=== PATIENT | female | born 1935 | race Caucasian/White ===

== ENCOUNTER 2023-05-02 20:16 | Inpatient (IN) | payer MEDICARE, SELFPAY ==
[2023-05-02 17:50] VITALS: BMI 25.0
[2023-05-02 17:51] VITALS: BP 112/68
[2023-05-02 17:53] VITALS: BP 112/68
[2023-05-02 18:01] VITALS: BP 108/70
[2023-05-02 18:21] LABS: % Basophils 0.8 % (0-2); % Eosinophils 0.5 % (0-6); % Immature Granulocytes 0.4 % (0-0.5); % Lymphocytes 8.2 % (20.5-51.1); % Monocytes 8.9 % (1.7-9.3); % Neutrophils 81.2 % (42.2-75.2); Absolute Basophils 0.1 10^3/uL (0-0.2); Absolute Lymphocytes 0.6 10^3/uL (1.2-3.4); Absolute Monocytes 0.7 10^3/uL (0.1-0.6); Absolute Neutrophils 5.9 10^3/uL (1.4-6.5); Hematocrit 41.7 % (37.0-47.0); Hemoglobin 13.6 g/dL (12.0-16.0); Mean Corp Hgb Conc. 32.6 g/dL (33.0-37.0); Mean Corpuscular Hgb 29.6 pg (27.0-31.0); Mean Corpuscular Volume 90.7 fL (81.0-99.0); Mean Platelet Volume 12.3 fL (7.4-10.4); Nucleated Red Blood Cells % 0 %; Platelet Count 201 10^3/uL (130-400); Red Cell Dist. Width 17.3 % (11.5-14.5); White Blood Cell Count 7.3 10^3/uL (4.8-10.8)
[2023-05-02 18:32] LABS: INR 1.73; PT 20.4 Sec (11.4-14.6)
[2023-05-02 18:36] LABS: ALT (SGPT) 46 U/L (0-35); AST (SGOT) 85 U/L (14-36); Albumin 3.5 g/dl (3.5-5.0); Alkaline Phosphatase 105 U/L (38-126); Blood Urea Nitrogen 35 mg/dl (7-17); Calcium 8.9 mg/dl (8.4-10.2); Carbon Dioxide 22 mmol/L (22-30); Chloride 98 mmol/L (98-107); Estimated Creatinine Clearance 29 ml/min; Glucose 141 mg/dl (70-99); Potassium 5.1 mmol/L (3.5-5.1); Sodium 133 mmol/L (135-145); Total Bilirubin 1.5 mg/dl (0.2-1.3); Total Protein 6.4 g/dl (6.3-8.2); eGFR 44.08
[2023-05-02 18:47] LABS: Troponin I 0.022 ng/ml
[2023-05-02 19:00] VITALS: BP 124/76
--- NOTE | 2023-05-02 19:01 | ED.GENMED ---
History of Present Illness
<Danielito Love PA-C - Last Filed: 05/02/23 19:37>
General
Chief Complaint: Dizziness
Source: patient
Time Seen by Provider: 05/02/23 18:31
Travel History
Have you had any contact with someone who has COVID-19?: No
Do you have any symptoms of coronavirus? Fever > 100 degrees, chills, cough, shortness of breath, sore throat, loss of taste or smell, muscle aches, or headache?: No
History of Present Illness
History of Present Illness:
87-year-old female with past medical history of atrial fibrillation, hypertension, recent mesenteric artery thrombosis presenting to the emergency department for evaluation via EMS after she started to feel anxious, palpitations and panicky which
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 Patient states the symptoms usually are occurring in the evening time but started earlier today prompting her to call her post hole digger office who
advised she come to the ER for further evaluation. Patient notes she is getting treated for anxiety and panic disorder and states the medicine does seem to help her a little bit at nighttime but states the medicine will wear off and then she is
unable to sleep any longer. Patient reports that when EMS found her they gave her a little bit of oxygen which seemed to help her symptoms and she was told she had an elevated heart rate but is unsure as to how high her heart rate was. She denies
any fevers or recent illnesses or any other concerns.
Past History
<Danielito Love PA-C - Last Filed: 05/02/23 19:37>
Past History
ED Past Medical History: Arrthythmia (Paroxysmal atrial fibrillation/A. flutter), Asthma, CAD, HTN, Hypercholesterolemia, Hypothyroidism, Other (C. difficile colitis, admitted February 2010, celiac disease, osteoporosis) and Other (Mesenteric artery
thrombosis)
ED Past Surgical History: Appendectomy, Gynecological (Hysterectomy) and Orthopedic (Surgery)
Social History
Tobacco: Former smoker
Alcohol: Occasional
Drug: None
Personal:
Living: with family
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
Family History
Family History: CAD and Cancer
Review of Systems
<Danielito Love PA-C - Last Filed: 05/02/23 19:37>
Review of Systems
All Other Systems: ROS reviewed and negative except as documented in HPI and ROS
Phy Exam
<SUSANNA Escalante Last Filed: 05/02/23 19:37>
Physical Exam
Physical Exam:
GENERAL: Alert , in no apparent distress
EYE: pu clear conjunctiva
NECK: Supple
ENT: o/p clr, mmm.
CARDIAC: Irregularly irregular rate and rhythm, slow A-fib on the playground monitor with intermittent pauses
LUNGS: Clear breath sounds bilaterally, no acute respiratory distress, no wheezes/rales/rhonchi
ABDOMEN: Soft, without focal tenderness, no r/g, no cvat
NEUROLOGICAL: Alert and oriented
SKIN: Warm and dry, skin intact.
MUSCULOSKELETAL: No edema, well perfused.
PSYCH: Normal and appropriate interaction.
Scores
<Danielito Love PA-C - Last Filed: 05/02/23 19:37>
Heart Failure Risk
Heart Failure Risk Score: Not Applicable
Heart Score for Chest Pain Patients
STEMI patient?: Not applicable
Withdrawal Assessment of Alcohol
Withdrawal Assessment Completed?: Not applicable
Course
<SUSANNA Escalante Last Filed: 05/02/23 19:37>
Orders/Labs/Results
Orders:
Orders
05/02/23 17:51
Electrocardiogram (*1) Urgent
Reason for Study: Other
Other Reason for Exam: Possible Stroke
Cardiac Monitoring- Treatment ONCE
Vital Signs As Directed
Frequency: Other
Weight As Directed
Frequency: Once
Comment: ZERO STRETCHER SCALE FOR ACCURATE WEIGHT
05/02/23 17:52
EKG- Treatment ONCE
05/02/23 17:57
Complete Blood Count/With Diff Urgent
Comprehensive Metabolic Panel Urgent
Prothrombin Time Urgent
Troponin I Urgent
Abnormal Lab Results
05/02/23
17:57
MCHC 32.6 L g/dL
(33.0-37.0)
RDW 17.3 H %
(11.5-14.5)
MPV 12.3 H fL
(7.4-10.4)
Absolute Lymphs (auto) 0.6 L 10^3/uL
(1.2-3.4)
Absolute Monos (auto) 0.7 H 10^3/uL
(0.1-0.6)
Neutrophils % 81.2 H %
(42.2-75.2)
Lymphocytes % 8.2 L %
(20.5-51.1)
PT 20.4 H Sec
(11.4-14.6)
Sodium 133 L mmol/L
(135-145)
BUN 35 H mg/dl
(7-17)
Creatinine 1.2 H mg/dL
(0.6-1.0)
Glucose 141 H mg/dl
(70-99)
Total Bilirubin 1.5 H mg/dl
(0.2-1.3)
AST 85 H U/L
(14-36)
ALT 46 H U/L
(0-35)
05/02/23 17:57
05/02/23 17:57
Vital Signs
Initial and Last Documented VS:
Initial Vital Signs
BP
112/68
05/02/23 17:51
Last Documented Vital Signs
Temp Pulse Resp BP Pulse Ox
99.0 F 55 22 108/70 95
05/02/23 18:02 05/02/23 18:45 05/02/23 18:45 05/02/23 18:01 05/02/23 18:45
Tapping Machine Operator Automatic consulted with Physician
Tapping Machine Operator Automatic consulted with physician?: Yes
Name of Physician Consulted: Jaydon
<Deshawn Interiano MD - Last Filed: 05/02/23 19:13>
Orders/Labs/Results
Orders:
Orders
05/02/23 17:51
Electrocardiogram (*1) Urgent
Reason for Study: Other
Other Reason for Exam: Possible Stroke
Cardiac Monitoring- Treatment ONCE
Vital Signs As Directed
Frequency: Other
Weight As Directed
Frequency: Once
Comment: ZERO STRETCHER SCALE FOR ACCURATE WEIGHT
05/02/23 17:52
EKG- Treatment ONCE
05/02/23 17:57
Complete Blood Count/With Diff Urgent
Comprehensive Metabolic Panel Urgent
Prothrombin Time Urgent
Troponin I Urgent
Abnormal Lab Results
05/02/23
17:57
MCHC 32.6 L g/dL
(33.0-37.0)
RDW 17.3 H %
(11.5-14.5)
MPV 12.3 H fL
(7.4-10.4)
Absolute Lymphs (auto) 0.6 L 10^3/uL
(1.2-3.4)
Absolute Monos (auto) 0.7 H 10^3/uL
(0.1-0.6)
Neutrophils % 81.2 H %
(42.2-75.2)
Lymphocytes % 8.2 L %
(20.5-51.1)
PT 20.4 H Sec
(11.4-14.6)
Sodium 133 L mmol/L
(135-145)
BUN 35 H mg/dl
(7-17)
Creatinine 1.2 H mg/dL
(0.6-1.0)
Glucose 141 H mg/dl
(70-99)
Total Bilirubin 1.5 H mg/dl
(0.2-1.3)
AST 85 H U/L
(14-36)
ALT 46 H U/L
(0-35)
05/02/23 17:57
05/02/23 17:57
Vital Signs
Initial and Last Documented VS:
Initial Vital Signs
BP
112/68
05/02/23 17:51
Last Documented Vital Signs
Temp Pulse Resp BP Pulse Ox
99.0 F 55 22 108/70 95
05/02/23 18:02 05/02/23 18:45 05/02/23 18:45 05/02/23 18:01 05/02/23 18:45
<Danielito Love PA-C - Last Filed: 05/02/23 19:37>
MDM/Problems Addressed
Differential Diagnosis Includes:
Tachybradycardia syndrome, electrolyte disturbance, anemia, anxiety/panic disorder
MDM/Problems Addressed:
87-year-old female presenting the emergency department for a multitude of vague symptoms, I did have a difficult time initially ascertaining as to why the patient was ultimately brought to the emergency department. She notes that she has had these
waxing and waning symptoms of panic over the last 5 months or so without any specific etiology. Upon arrival patient was found to be significantly tachycardic around 148 bpm but during my exam patient's heart rate was persistently around 50 bpm but
did drop as low as 42 bpm. Patient maintains she is asymptomatic at this time. My biggest concern would be for tachybradycardia syndrome. Patient is on a beta-clay and Eliquis presently. Ultimately unclear etiology for patient's symptoms but
given age and prolonged duration of the symptoms combined with elevated heart rate initially on arrival, bradycardia with pauses on the ekg monitor tech I do think it would be best to admit patient for further evaluation and treatment.
Chronic conditions affecting care: Arrhythmia
Acute Exacerbation and/or Progression of Chronic Illness: Arrhythmia
<Danielito Love PA-C - Last Filed: 05/02/23 19:37>
*Pulse Oximetry
Patient hypoxic: no
*EKG
Interpreted by ED Provider?: Yes
Comparison EKG: changes noted
Heart Rate: 54
Rate: bradycardiac
Rhythm: a-fib
[place]: normal axis
Ischemia: no ischemia
*Setup Operator Interpretation
Rate: bradycardiac
Rhythm: a-fib
*Critical Care Note
Total Time (30-74mins, 75-104mins- exclusive of procedures): Not Applicable
Data Reviewed
Review of Other/Old Records Reveals: Labs, Records and Discharge Summary
Source: patient, records and family
<Danielito Love PA-C - Last Filed: 05/02/23 19:37>
Patient Management
Discussion with other providers: Hospitalist
Escalation/DeEscalation of care consider admission/obs:
Patient seen with Dr. Interiano. Patient history was noted to also have a near syncopal episode last week. Given the intermittent tachycardia combined with bradycardia and intermittent pauses seen on telemetry I do think it would be best for patient
to be admitted. Hospitalist is aware and accepts for continued evaluation and treatment.
ED Attending Note
<Danielito Love PA-C - Last Filed: 05/02/23 19:37>
-
Portions of this chart may have been created with voice recognition software.� Occasional wrong word or��sound alike� substitutions may have occurred due to the inherent limitations of voice recognition software.
<Deshawn Interiano MD - Last Filed: 05/02/23 19:13>
ED Attending Note
Patient seen and examined by attending physician: Yes
I performed the substantive portion of visit, reviewed & personally made and approve the management plan that is documented in note by myself or VINAYAK.: Yes
ED Attending Note:
Patient describing episodes of near syncope last week and possible early near syncope today. Was apparently noted to be tachycardic in the 140s on arrival however no proved by monitor. Has also had some episode pauses for a few seconds with her
atrial fibrillation. Clinically stable at this time.
Lungs are clear and equal. Heart irregular irregular. Warm and dry. Perfusing well. Grossly nonfocal.
Labs are stable. EKG atrial fibrillation rate controlled. Monitor noted to have a few episodes with 2-second pauses. Possible tachybradycardia syndrome with the atrial fibrillation. Warrants inpatient management
Discharge Plan
Departure
Patient Disposition: Admit
Date of Disposition: 05/02/23
Time of Disposition: 19:30
Presentation/result/management discussed w/ accepting MD/DO: Hospitalist
Discharge Problem:
Palpitations
Prescriptions:
No Action
pravastatin 20 MG tablet
20 mg PO QPM
ibandronate 150 mg Tablet
150 mg PO QMONTH
Eliquis 5 mg Tablet
5 mg PO BID Qty: 60 0RF
diltiazem HCl [Cardizem CD] 360 mg capsule,extended release 24hr
360 mg PO DAILY Qty: 30 0RF
multivitamin Tablet
1 tab PO DAILY@1200
metoprolol succinate 50 mg tablet extended release 24 hr
50 mg PO QPM
potassium chloride 20 mEq tablet,ER particles/crystals
20 meq PO DAILY@1200
ascorbic acid (vitamin C) [Vitamin C] 500 mg Tablet
500 mg PO DAILY@1200
levothyroxine 150 mcg tablet
150 mcg PO DAILY
bumetanide 1 mg tablet
0.5 mg PO BID@0800,1400
Saccharomyces boulardii [Florastor] 250 mg Capsule
250 mg PO BID
cholecalciferol (vitamin D3) [Vitamin D3] 25 mcg (1,000 unit) Tablet
25 mcg PO DAILY@1200
metoprolol succinate 50 mg tablet extended release 24 hr
75 mg PO DAILY
alprazolam [Xanax] 0.5 mg tablet
0.5 mg PO HS PRN (Reason: anxiety/sleep)
Patient Comments:
05/02/2023: last filled 03/29/23, 30 tabs for 30 days from [facility]
Interventions
Interventions:
*Risk Screen - Suicide Last Done: 05/02/23 17:50
*General Assessment Last Done: 05/02/23 17:50
*Neglect/Abuse Screening Last Done: 05/02/23 17:50
ED- Fall Risk Assessment Last Done: 05/02/23 17:54
*ED COVID-19 Vaccine History Last Done: 05/02/23 17:50
ED- Neurological Assessment Last Done: 05/02/23 17:50
ED- Cardiac Assessment Last Done: 05/02/23 17:54
ED Swallowing Screen Last Done: 05/02/23 19:13
[2023-05-02 20:00] VITALS: BP 121/77
--- NOTE | 2023-05-02 20:03 | HPS.HSE ---
Family Physician
-
Family Physician:
Chief Complaint
-
dizziness
History of Present Illness
87-year-old female past medical history of persistent atrial fibrillation, tachycardia induced cardiomyopathy, nonsustained ventricular tachycardia, moderate mitral regurgitation, patent mann ovale, hypertension, anxiety/panic disorder, celiac
disease, mesenteric ischemia status post SMA embolectomy, anemia, hypothyroidism, lung nodule, presenting with shortness of breath, lightheadedness occurring regularly sometimes with palpitations ongoing since her recent embolectomy for mesenteric
ischemia in November. She nearly passed out last Saturday but did not pass out.Symptoms usually occur in the evening today prompting her to call her reporting analyst office who recommended she come to the emergency room.
She denies any weight gain or weight loss.
Patient is being treated for anxiety and panic disorder and states that the medicine does help a little bit at nighttime but wears off and then she is unable to sleep. Patient was told by EMS that she had elevated heart rate. She denies any fever
or recent illness.
Medical History
Past Medical History
Past Medical History: Reports Other (persistent atrial fibrillation, tachycardia induced cardiomyopathy, nonsustained ventricular tachycardia, moderate mitral regurgitation, patent mann ovale, hypertension, anxiety/panic disorder, celiac disease,
mesenteric ischemia status post SMA embolectomy, anemia, hypothyroidism, lung nodule)
Past Surgical History: Reports None
Social History
Tobacco: Former Smoker
Alcohol: Occasional
Drug: None
Family History
Family History: Not pertinent
Allergies / Home Medications
Allergies reflects when Allergies were last updated in [facility].
Home Medications with original date entered in [facility]
Allergy/Medication List:
Allergies
Allergy/AdvReac Type Severity Reaction Status Date / Time
adhesive tape [Adhesive Tape] Allergy Redness,swe Verified 05/02/23 17:55
lling,rash
gluten [Gluten] Allergy ABDOMINAL Verified 05/02/23 17:55
PAIN,DIARRHEA,
WT LOSS,
ANEMIA
metronidazole [From Flagyl] Allergy cognitive Verified 05/02/23 17:55
impairment,
speech
effected
Sulfa (Sulfonamide Allergy Anaphylaxis Verified 05/02/23 17:55
Antibiotics)
almonds Allergy Stuffy, Uncoded 05/02/23 17:55
cough
CLEANING PRODUCTS Allergy Breathing Uncoded 05/02/23 17:55
difficulty,
coughing,
eye tearing
popcorn Allergy Stuffy, Uncoded 05/02/23 17:55
cough
Home Medications
pravastatin 20 mg tablet 20 mg PO QPM High Cholesterol 08/24/16
ibandronate 150 mg tablet 150 mg PO QMONTH OSTEOPOROSIS 01/15/23
apixaban 5 mg tablet (Eliquis) 5 mg PO BID #60 tabs 01/23/23
diltiazem HCl 360 mg capsule,extended release 24 hr (Cardizem CD) 360 mg PO DAILY #30 caps 01/23/23
Saccharomyces boulardii 250 mg capsule (Florastor) 250 mg PO BID 05/02/23
alprazolam 0.5 mg tablet (Xanax) 0.5 mg PO HS PRN anxiety/sleep 05/02/23
ascorbic acid (vitamin C) 500 mg tablet (Vitamin C) 500 mg PO DAILY@1200 05/02/23
bumetanide 1 mg tablet 0.5 mg PO BID@0800,1400 05/02/23
cholecalciferol (vitamin D3) 25 mcg (1,000 unit) tablet (Vitamin D3) 25 mcg PO DAILY@1200 05/02/23
levothyroxine 150 mcg tablet 150 mcg PO DAILY 05/02/23
metoprolol succinate 50 mg tablet,extended release 24 hr 50 mg PO QPM 05/02/23
metoprolol succinate 50 mg tablet,extended release 24 hr 75 mg PO DAILY 05/02/23
multivitamin 1 tab PO DAILY@1200 05/02/23
potassium chloride 20 mEq tablet,extended release(part/cryst) 20 meq PO DAILY@1200 05/02/23
Review of Systems
-
History Source: Patient
A 12 point ROS was completed and negative except as noted: Yes
Constitutional: Reports No Symptoms
EENT: Reports No Symptoms
Respiratory: Reports See HPI
Cardiac: Reports See HPI
Abdomen/GI: Reports No Symptoms
: Reports No Symptoms
Musculoskeletal: Reports No Symptoms
Skin: Reports No Symptoms
Neurological: Reports No Symptoms
Endocrine: Reports No Symptoms
Hematologic/Lymphatic: Reports No Symptoms
Psych: Reports No Symptoms
Physical Exam
Vital Signs
Vital Signs
Temp Pulse Resp BP Pulse Ox
99.0 F 64 23 124/76 93
05/02/23 18:02 05/02/23 19:30 05/02/23 19:30 05/02/23 19:00 05/02/23 19:00
Physical Exam
General: Well Developed, Well Nourished and No Apparent Distress
HEENT: NormoCephalic, Moist mucous membranes and Atraumatic
Respiratory: Clear
Cardiac: S1/S2 and Regular Rhythm; No Murmur or Rub
GI: Soft, Non Tender, Non Distended and Normal Bowel Sounds; No Organomegaly
Rectal: Deferred by Provider
Musculoskeletal: No Clubbing, No Cyanosis and No Edema
Skin: No Rash
Neuro: Nonfocal/grossly intact
Laboratory Results
-
05/02/23 17:57
05/02/23 17:57
Laboratory Results
PT 20.4 Sec (11.4-14.6) H 05/02/23 17:57
INR 1.73 05/02/23 17:57
Total Bilirubin 1.5 mg/dl (0.2-1.3) H 05/02/23 17:57
AST 85 U/L (14-36) H 05/02/23 17:57
ALT 46 U/L (0-35) H 05/02/23 17:57
Alkaline Phosphatase 105 U/L (38-126) 05/02/23 17:57
Troponin I 0.022 ng/ml 05/02/23 17:57
Data Reviewed
-
Lab Data: Labs Reviewed by me
Old Records: Reviewed
Impression/Plan
-
IMPRESSION:
PLAN:
# Tachybradycardia syndrome
# History of persistent atrial fibrillation
-Hold Eliquis for likely pacemaker
-Hold Cardizem, metoprolol
-N.p.o. past midnight
-Cardiology consulted
Tachycardia induced cardiomyopathy
-EF of 55 to 60%
-Continue Bumex
History of nonsustained ventricular tachycardia
Moderate mitral regurgitation
Patent mann ovale
Anxiety/panic disorder
-Continue Xanax
Essential hypertension
Celiac disease
History of mesenteric ischemia status post SMA embolectomy
Anemia
Hypothyroidism
-Continue levothyroxine
Lung nodule
Osteoporosis
Full code
DVT prophylaxis�SCDs
N.p.o. postmidnight
[2023-05-02 22:10] VITALS: BP 139/95
[2023-05-02 22:11] VITALS: BMI 22.2
[2023-05-02 22:29] VITALS: BMI 22.2
--- NOTE | 2023-05-02 23:00 | PTCARENOTE ---
Received pt from ED via stretcher; pt's height and weigh, vital signs obtained; pt transferred to hospital bed, new gown provided, tele leads changed; pt oriented to unit and room; pt was asked all admission questions, see work list; all pt's
questions were answered; pt assisted to bathroom and back to bed; pt assessed; pt AAOx3, denies pain; Afib on monitor, VSS; heart sounds audible, radial and DP pulses palpable, trace PUNEET; lungs CTA, spo2 98% on RA; + bs x4 quadrants, abdomen soft
non tender, pt NPO after midnight; pt voiding clear yellow urine; skin is CDI; x2 left PIV maintained; call ayala within reach; will continue to monitor.
[2023-05-03] VITALS (8 sets, daily range): BP systolic 103–136; BP diastolic 69–99; BMI 22.1
--- NOTE | 2023-05-03 02:30 | PTCARENOTE ---
Pt assessment unchanged; Afib on monitor, VSS; pt assisted to bathroom; barrier cream applied to pt's buttocks; pt assisted back to bed; am labs drawn and sent; call ayala within reach; will continue to monitor.
[2023-05-03 02:34] LABS: % Basophils 0.6 % (0-2); % Eosinophils 0.3 % (0-6); % Immature Granulocytes 0.3 % (0-0.5); % Lymphocytes 10.4 % (20.5-51.1); % Monocytes 11.6 % (1.7-9.3); % Neutrophils 76.8 % (42.2-75.2); Absolute Lymphocytes 0.7 10^3/uL (1.2-3.4); Absolute Monocytes 0.7 10^3/uL (0.1-0.6); Absolute Neutrophils 4.9 10^3/uL (1.4-6.5); Hematocrit 36.1 % (37.0-47.0); Hemoglobin 12.4 g/dL (12.0-16.0); Mean Corp Hgb Conc. 34.3 g/dL (33.0-37.0); Mean Corpuscular Hgb 29.8 pg (27.0-31.0); Mean Corpuscular Volume 86.8 fL (81.0-99.0); Mean Platelet Volume 12.3 fL (7.4-10.4); Nucleated Red Blood Cells % 0 %; Platelet Count 190 10^3/uL (130-400); Red Blood Cell Count 4.16 10^6/uL (4.20-5.40); Red Cell Dist. Width 17.2 % (11.5-14.5); White Blood Cell Count 6.4 10^3/uL (4.8-10.8)
[2023-05-03 03:33] LABS: ALT (SGPT) 71 U/L (0-35); AST (SGOT) 103 U/L (14-36); Albumin 3.3 g/dl (3.5-5.0); Alkaline Phosphatase 94 U/L (38-126); Blood Urea Nitrogen 36 mg/dl (7-17); Calcium 8.7 mg/dl (8.4-10.2); Carbon Dioxide 24 mmol/L (22-30); Chloride 99 mmol/L (98-107); Estimated Creatinine Clearance 42 ml/min; Glucose 112 mg/dl (70-99); Potassium 4.7 mmol/L (3.5-5.1); Sodium 134 mmol/L (135-145); Total Bilirubin 1.2 mg/dl (0.2-1.3); Total Protein 6.1 g/dl (6.3-8.2); eGFR > 60.00
[2023-05-03 03:54] LABS: Anisocytosis 1+; Normal RBC Morphology No; Ovalocytes 1+; Target Cells Occasional
[2023-05-03 03:55] LABS: Acanthocytes Occasional; Tear Drop Red Blood Cells Occasional
[2023-05-03] MEDS: SYNTHROID 150 MCG PO (06:00)
--- NOTE | 2023-05-03 07:46 | W.PN.CD ---
Today's Communication / Plan
-
Impression / Plan
-
Impression: 87F with palpitations. 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
PMH: persistent atrial fibrillation s/p PVI x2, moderate mitral regurgitation, and labile hypertension.
Plan:
Persistent atrial fibrillation since SMA thrombosis critical illness
-AF rate control was marginal on diltiazem 360 and metoprolol 50 BID (See Apr 12 Holter - Avg 91 with high of 127 but 44% over 100). She has intolerances at higher doses. I pitched her on�'(1) repeat ablation (2) more medication or (3) ablate and
pace strategy (my preference)' at our visit in March. She is unable to navigate this decision - she doesn't want more medication, but she also doesn't want a procedure due to concerns about anesthesia. I will continue to address this and still
lean strongly toward ablate and pace.
-PVI x2 in the past
-Oral Anticoagulation: Apixaban
-[id number]: 7
HFpEF
- diurese to 130 lbs.
- continue home Lasix
- check pBNP and CXR
HTN - stable
Moderate eccentric mitral regurgitation, updated TTE in December is stable
Patent foramen ovale
Confusion
Hypothyroidism, on levothyroxine
Dispo
- I think there is a significant component of anxiety and deconditioning to her symptoms.
- Continue tele and conversations about rate control
Subjective:Dictated
TTE Jan 15: normal LVEF, moderate MR (unchanged)
Physical Exam
Vital Signs/Labs
Vital Signs
Temp Pulse Resp BP Pulse Ox
36.3 C 94 18 136/69 98
05/03/23 07:14 05/03/23 07:14 05/03/23 07:14 05/03/23 02:10 05/03/23 07:14
05/02/23 05/03/23 05/04/23
06:59 06:59 06:59
Actual Weight 136 lb 10.986 oz
05/03/23 02:22
05/03/23 02:22
PT 20.4 Sec (11.4-14.6) H 05/02/23 17:57
INR 1.73 05/02/23 17:57
LAB Results
05/02/23
17:57
Troponin I 0.022
Data Reviewed
-
Date of Service: May 03, 2023
--- NOTE | 2023-05-03 08:37 | W.PN.HOSP.TC ---
Addendum entered and electronically signed by Maylin Gong MD 05/04/23 08:48:
Correction- '# Hypertension-continue carvedilol and beta-clay' should read as 'Discontinue Cardizem and BB'
Original Note:
Today's Communication/Plan
-
Echo
Ultrasound of the abdomen given elevated LFTs
Chest x-ray
Assessment / Plan
Assessment / Plan
87-year-old female presented with dizziness. Patient stated that she has not felt well since she had surgery for her blood clot in the abdomen in December 2022. She has had ablations in the past and states that A-fib came back after this.
On examination awake alert oriented x 3
Not in acute distress
Cardiovascular system S1-S2 irregular, systolic murmur at apex
Chest clear to auscultation
Abdomen-soft and nontender
No pedal edema
# Persistent atrial fibrillation since December 2022
History of ablation 2010 2013
Patient on Eliquis, Cardizem 360 mg daily, metoprolol 75 mg in the morning and 50 mg in the evening
She has tachybradycardia syndrome and may need ablation with pacemaker placement per discussion with cardiology
Patient has not made up her mind as she is uncomfortable with anesthesia.
Procedure may be planned for Saturday but discussed with cardiology
# Heart failure with preserved ejection fraction-chronic
Unclear if she has an acute component
Chest x-ray, proBNP ordered
She takes Bumex 0.5 mg p.o. twice daily at home-continue
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
# Moderate mitral regurgitation
# Mild hyponatremia-follow
# Acute kidney injury-resolving
# Elevated AST and ALT-check an ultrasound of the abdomen
Patient does have a history of cholelithiasis
# Hypothyroidism-continue Synthroid
# Hypertension-continue carvedilol and beta-clay
# Hyperlipidemia/atherosclerosis-continue pravastatin
# Osteoporosis-on ibandronate
# Anxiety-on Xanax as needed
# PFO
# Cluster headaches
# Diverticulosis/IBS/celiac disease
# Ex-smoker
# DVT prophylaxis-on Eliquis
# Full code
Discussed with nursing
Discussed with cardiology
Anticipated Discharge: > 48 hours
Subjective/Interval History
-
Date of Service: May 03, 2023
Objective Data
-
Labs:
Laboratory Results
05/03/23
02:22
WBC 6.4
Hgb 12.4
Hct 36.1 L
Plt Count 190
Sodium 134 L
Potassium 4.7
Chloride 99
Carbon Dioxide 24
BUN 36 H
Creatinine 0.9
Glucose 112 H
Calcium 8.7
Total Bilirubin 1.2
AST 103 H
ALT 71 H
Alkaline Phosphatase 94
Vital Signs:
Vital Signs
Temp Pulse Resp BP Pulse Ox
97.3 F 106 18 120/84 98
05/03/23 07:14 05/03/23 08:21 05/03/23 07:14 05/03/23 08:21 05/03/23 07:14
I&O
05/02/23 05/03/23 05/04/23
06:59 06:59 06:59
Intake Total 480 / 480
Balance 480 / 480
--- NOTE | 2023-05-03 08:56 | VNURNOTE ---
Patient is current with [facility] since 02/01 w/SN, will monitor progress and plan at discharge.
[2023-05-03] MEDS: BUMEX 1 MG IV ×2 (08:57→19:50)
[2023-05-03] MEDS: FLUSH (NSS) 2 FLUSH IV (08:57)
[2023-05-03] MEDS: FLORASTOR 250 MG PO ×2 (08:57→19:51)
[2023-05-03 09:26] LABS: NT-proBNP 2780 pg/ml
--- NOTE | 2023-05-03 09:56 | PTCARENOTE ---
Received patient this morning sitting oob in the chair. Assisted to the bathroom, rolling walker provided but instructed to call for assistance. Patient seen by cardiology and the hospitalist. Patient had been NPO for possible ppm, however now taken
for U/S of the abdomen and CXR/echo. Patient is very anxious, asking many questions about medications, plan of care etc.
--- NOTE | 2023-05-03 12:27 | CM ---
CM following for DC planning needs.
Met w/ patient at bedside to complete initial assessment.
Pt. informs that she resides alone at [facility]. Functionally, patient is indep. w/ use of a RW.
Pt. had recent surgery in 2022 and explains that she was DC'ed to SNF @ [facility] where she spent a week. She was DCed back to her apartment w/ [facility] and they are still providing RN care.
Pt. and dtr. are considering additional private duty care through private caregivers-this is an arrangement that they make privately.
DC plan at this time is for home w/ [facility]. Will initiate referral for [facility].
Will cont. to follow.
[2023-05-03] MEDS: VITAMIN D3 (cholecalciferol) 25 MCG PO (12:44)
[2023-05-03] MEDS: KCL 20 MEQ PO (12:44)
[2023-05-03] MEDS: THERAGRAN 1 TABLET PO (12:45)
[2023-05-03] MEDS: VITAMIN C 500 MG PO (12:45)
[2023-05-03] MEDS: TYLENOL 650 MG PO (15:00)
--- NOTE | 2023-05-03 15:05 | PTCARENOTE ---
Patient remains in AF, HR now 80-90's after receiving PO toprol. Telephoned PT re: PT evaluation as part of discharge planning. The patient's son went home to shower and is now back in the room with his dad. States his father sleeps upstairs at his
house but there is a bathroom on the main level.
--- NOTE | 2023-05-03 15:25 | PTCARENOTE ---
Patient complained of a headache and medicated with tylenol.
[2023-05-03] MEDS: PRAVACHOL 20 MG PO (17:40)
--- NOTE | 2023-05-03 18:30 | PTCARENOTE ---
Patient sitting oob in the chair visiting with her daughter. Remains in AF, no bradycardia or pauses noted on telemetry, rates 110's at rest but up to the 130's with activity. TT to Dr. Gong re: meds that have not been restarted and she requested
any rate issues be handled by cardiology. TT to Dr. Parra and events today communicated. Dr. Parra then spoke with Dr. Blackwood about plan of care and will order toprol for HS and resume the patient's eliquis.
[2023-05-03] MEDS: ELIQUIS 5 MG PO (19:51)
[2023-05-03] MEDS: TOPROL XL 25 MG PO (21:58)
[2023-05-04] VITALS (7 sets, daily range): BP systolic 118–140; BP diastolic 62–99; BMI 21.3
[2023-05-04 02:08] LABS: % Basophils 0.9 % (0-2); % Eosinophils 1.1 % (0-6); % Immature Granulocytes 0.2 % (0-0.5); % Lymphocytes 12.8 % (20.5-51.1); % Monocytes 12.6 % (1.7-9.3); % Neutrophils 72.4 % (42.2-75.2); Absolute Basophils 0.1 10^3/uL (0-0.2); Absolute Eosinophils 0.1 10^3/uL (0-0.7); Absolute Lymphocytes 0.7 10^3/uL (1.2-3.4); Absolute Monocytes 0.7 10^3/uL (0.1-0.6); Hematocrit 36.3 % (37.0-47.0); Hemoglobin 12.6 g/dL (12.0-16.0); Mean Corp Hgb Conc. 34.7 g/dL (33.0-37.0); Mean Corpuscular Hgb 29.8 pg (27.0-31.0); Mean Corpuscular Volume 85.8 fL (81.0-99.0); Nucleated Red Blood Cells % 0 %; Platelet Count 178 10^3/uL (130-400); Red Blood Cell Count 4.23 10^6/uL (4.20-5.40); Red Cell Dist. Width 17.2 % (11.5-14.5); White Blood Cell Count 5.5 10^3/uL (4.8-10.8)
[2023-05-04 02:25] LABS: ALT (SGPT) 64 U/L (0-35); AST (SGOT) 72 U/L (14-36); Albumin 3.5 g/dl (3.5-5.0); Alkaline Phosphatase 101 U/L (38-126); Blood Urea Nitrogen 30 mg/dl (7-17); Calcium 8.9 mg/dl (8.4-10.2); Carbon Dioxide 27 mmol/L (22-30); Chloride 105 mmol/L (98-107); Estimated Creatinine Clearance 47 ml/min; Glucose 96 mg/dl (70-99); Potassium 3.9 mmol/L (3.5-5.1); Sodium 137 mmol/L (135-145); Total Bilirubin 1.1 mg/dl (0.2-1.3); Total Protein 6.4 g/dl (6.3-8.2); eGFR > 60.00
--- NOTE | 2023-05-04 07:35 | PTCARENOTE ---
No episodes of bradycardia overnight, pt. remained in AF, rate 90's-150's (with activity) - even after HS Toprol given. Voiding frequently on BSC.
[2023-05-04] MEDS: ELIQUIS 5 MG PO ×2 (08:05→20:09)
[2023-05-04] MEDS: FLORASTOR 250 MG PO ×2 (08:05→20:09)
[2023-05-04] MEDS: SYNTHROID 150 MCG PO (08:05)
--- NOTE | 2023-05-04 08:17 | PTCARENOTE ---
Received pt for 7a-7p shift. Pt AAOx3, without complaints. Afib on lumber loader, hr 120-140's when moving, bp stable. 94% room air, some VALLE. Pt ambulatory to commode with rolling walker, 1 person assist. Medications administered as ordered.
Instructed pt to call for assistance prior to ambulation. Pt verbalized understanding, demonstrates use of call ayala system. Will continue to monitor.
--- NOTE | 2023-05-04 08:26 | W.PN.HOSP.TC ---
Today's Communication/Plan
-
Diuresis
Assessment / Plan
Assessment / Plan
87-year-old female presented with dizziness. Patient stated that she has not felt well since she had surgery for her blood clot in the abdomen in December 2022. She has had ablations in the past and states that A-fib came back after this.
On examination awake alert oriented x 3
Not in acute distress
Cardiovascular system S1-S2 irregular, systolic murmur at apex
Chest clear to auscultation
Abdomen-soft and nontender
Mild pedal edema
# Persistent atrial fibrillation since December 2022
History of ablation 2010 and 2013
Patient on Eliquis, Cardizem 360 mg daily, metoprolol 75 mg in the morning and 50 mg in the evening as OP
She has tachybradycardia syndrome and may need ablation with pacemaker placement per discussion with cardiology
Procedure planned for Saturday
Heart rate was running high yesterday low-dose beta-clay added may need to increase it to twice daily
# Heart failure with preserved ejection fraction-acute on chronic
Chest x-ray CHF, proBNP 2780
She takes Bumex 0.5 mg p.o. twice daily at home-changed to 1 mg IV BID
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
# Moderate mitral regurgitation
# Mild hyponatremia-resolved
# Acute kidney injury-resolving
# Elevated AST and ALT
Ultrasound of the abdomen-no abnormalities of the liver, bilateral pleural effusions, cholelithiasis without evidence of acute cholecystitis.
Patient does have a history of cholelithiasis
# Hypothyroidism-continue Synthroid
# Hypertension-continue metoprolol
# Hyperlipidemia/atherosclerosis-continue pravastatin
# Osteoporosis-on ibandronate
# Anxiety-on Xanax as needed
# PFO
# Cluster headaches
# Diverticulosis/IBS/celiac disease
# Ex-smoker
# DVT prophylaxis-on Eliquis
# Full code
Discussed with nursing
Discussed with cardiology
Anticipated Discharge: > 48 hours
Subjective/Interval History
-
Date of Service: May 04, 2023
Objective Data
-
Labs:
Laboratory Results
05/04/23
02:00
WBC 5.5
Hgb 12.6
Hct 36.3 L
Plt Count 178
Sodium 137
Potassium 3.9
Chloride 105
Carbon Dioxide 27
BUN 30 H
Creatinine 0.8
Glucose 96
Calcium 8.9
Total Bilirubin 1.1
AST 72 H
ALT 64 H
Alkaline Phosphatase 101
Vital Signs:
Vital Signs
Temp Pulse Resp BP Pulse Ox
98.2 F 139 20 140/85 94
05/04/23 07:42 05/04/23 08:00 05/04/23 07:42 05/04/23 07:42 05/04/23 07:42
I&O
05/03/23 05/04/23 05/05/23
06:59 06:59 06:59
Intake Total 480 / 480 1060 / 1060
Output Total 1000 / 1000
Balance 480 / 480 60 / 60
--- NOTE | 2023-05-04 09:04 | W.PN.CD ---
Today's Communication / Plan
-
increase Toprol XL to 25mg bid
continue IV bumex
tentative plan for PPM Saturday
Impression / Plan
-
Impression: 87F with palpitations. 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
PMH: persistent atrial fibrillation s/p PVI x2, chronic HFPEF, moderate mitral regurgitation, and labile hypertension.
Plan:
Persistent atrial fibrillation since SMA thrombosis critical illness
-AF rate control was marginal on diltiazem 360 and metoprolol 50 BID (See Apr 12 Holter - Avg 91 with high of 127 but 44% over 100). She has intolerances at higher doses. Dr Blackwood discussed (1) repeat ablation (2) more medication or (3) ablate
and pace strategy (SR preference and recommendation) at visit in March, and again on 05/03. She is struggles to make a decision.
-we again discussed proceeding to PPM on Saturday: she is thinking about it
-rate: increase Toprol XL to 25mg bid
-PVI x2 in the past
-Oral Anticoagulation: Apixaban
-[id number]: 7
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
-echo 05/03: EF 40%, down from 55-60% in 12/2022, with MR now moderate/severe (from moderate)
-severe, requiring close monitoring of labs and tele
-suspect in setting of A fib with RVR
-Toprol being titrated as above
-bumex 1mg IV bid
-others meds limited by intolerances
HTN - stable
Moderate/severe MR, mild/mod TR, pulm HTN
-diurese
Patent foramen ovale
Confusion
Hypothyroidism, on levothyroxine
Dispo
- I think there is a significant component of anxiety and deconditioning to her symptoms.
- Continue tele and conversations about rate control
Subjective:
She reports more palps today.
Physical Exam
Vital Signs/Labs
Vital Signs
Temp Pulse Resp BP Pulse Ox
98.2 F 139 20 140/85 94
05/04/23 07:42 05/04/23 08:00 05/04/23 07:42 05/04/23 07:42 05/04/23 07:42
05/03/23 05/04/23 05/05/23
06:59 06:59 06:59
Actual Weight 62 kg 59.7 kg
05/04/23 02:00
05/04/23 02:00
PT 20.4 Sec (11.4-14.6) H 05/02/23 17:57
INR 1.73 05/02/23 17:57
Magnesium 2.0 mg/dl (1.6-2.3) 05/04/23 02:00
05/03/23
02:22
Efq-O-Koqesvckuad Pept 2780
LAB Results
05/02/23
17:57
Troponin I 0.022
Physical Exam
Constitutional: No acute distress and Comfortable
EENT: Moist mucous membranes
Cardiovascular: Rhythm/rate is irregular, Pedal edema present, JVD present and Systolic murmur present
Respiratory: Respiratory effort normal and Lungs clear to auscul.
GI: Soft, Distention absent and Flat
Neuro/Psych: AO x 3
Data Reviewed
-
Date of Service: May 04, 2023
EKG: Other (Tele: A fib 110s-120s)
Echo: Tracing Personally Visualized and interpreted (see note)
Labs: Labs Reviewed by me
Old Records: Reviewed
[2023-05-04] MEDS: TOPROL XL 25 MG PO ×2 (09:20→20:09)
[2023-05-04] MEDS: BUMEX 1 MG IV ×2 (09:21→15:02)
[2023-05-04] MEDS: VITAMIN D3 (cholecalciferol) 25 MCG PO (12:02)
[2023-05-04] MEDS: KCL 20 MEQ PO (12:02)
[2023-05-04] MEDS: VITAMIN C 500 MG PO (12:02)
[2023-05-04] MEDS: THERAGRAN 1 TABLET PO (12:02)
[2023-05-04] MEDS: XANAX 0.25 MG PO (15:14)
[2023-05-04] MEDS: PRAVACHOL 20 MG PO (17:15)
--- NOTE | 2023-05-04 18:48 | PTCARENOTE ---
Patient AAOx3, oob in chair, without complaints. VSS, Afib on cardiac monitor technician. Family at bedside. Xanax given at 1515 for anxiety, pt feeling better. +bm, voiding on commode without issues. Pt denies pain at this time. Will continue to monitor.
[2023-05-04] MEDS: XANAX 0.5 MG PO (22:08)
--- NOTE | 2023-05-05 02:14 | PTCARENOTE ---
HR 120's-150's when awake, A-fib. Pt. very anxious, barely slept night before. Xanax given, pt. much calmer post, HR down to low 100's-110's with sleep (Toprol also given as ordered).
[2023-05-05 04:09] VITALS: BP 114/89
[2023-05-05 04:16] VITALS: BMI 21.0
[2023-05-05 04:48] LABS: Hematocrit 42.1 % (37.0-47.0); Hemoglobin 13.9 g/dL (12.0-16.0); Mean Corpuscular Hgb 29.9 pg (27.0-31.0); Mean Corpuscular Volume 90.5 fL (81.0-99.0); Platelet Count 181 10^3/uL (130-400); Red Blood Cell Count 4.65 10^6/uL (4.20-5.40); Red Cell Dist. Width 17.5 % (11.5-14.5); White Blood Cell Count 5.1 10^3/uL (4.8-10.8)
[2023-05-05 05:07] LABS: Blood Urea Nitrogen 25 mg/dl (7-17); Calcium 9.2 mg/dl (8.4-10.2); Carbon Dioxide 31 mmol/L (22-30); Chloride 102 mmol/L (98-107); Estimated Creatinine Clearance 47 ml/min; Glucose 104 mg/dl (70-99); Potassium 3.8 mmol/L (3.5-5.1); Sodium 139 mmol/L (135-145); eGFR > 60.00
--- NOTE | 2023-05-05 08:28 | W.PN.CD ---
Today's Communication / Plan
-
we again discussed proceeding to PPM on Saturday: she is thinking about it, and would like to consult with EP in AM
rate: increase Toprol XL to 50mg bid
cont IV bumex
NPO for possible PPM in AM, and hold jose montoya
Impression / Plan
-
Impression: 87F with palpitations. 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
PMH: persistent atrial fibrillation s/p PVI x2, chronic HFPEF, moderate mitral regurgitation, and labile hypertension.
Plan:
Persistent atrial fibrillation since SMA thrombosis critical illness
-AF rate control was marginal on diltiazem 360 and metoprolol 50 BID (See Apr 12 Holter - Avg 91 with high of 127 but 44% over 100). She has intolerances at higher doses. Dr Blackwood discussed (1) repeat ablation (2) more medication or (3) ablate
and pace strategy (SR preference and recommendation) at visit in March, and again on 05/03. She is struggles to make a decision.
-we again discussed proceeding to PPM on Saturday: she is thinking about it, and would like to consult with EP in AM
-rate: increase Toprol XL to 50mg bid
-PVI x2 in the past
-Oral Anticoagulation: Apixaban
-[id number]: 7
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
-echo 05/03: EF 40%, down from 55-60% in 12/2022, with MR now moderate/severe (from moderate)
-severe, requiring close monitoring of labs and tele
-suspect in setting of A fib with RVR
-Toprol being titrated as above
-bumex 1mg IV bid
-others meds limited by intolerances
HTN - stable
Moderate/severe MR, mild/mod TR, pulm HTN
-diurese
Patent foramen ovale
Confusion
Hypothyroidism, on levothyroxine
Dispo
- I think there is a significant component of anxiety and deconditioning to her symptoms.
- Continue tele and conversations about rate control
Subjective:
Continues with palps.
Physical Exam
Vital Signs/Labs
Vital Signs
Temp Pulse Resp BP Pulse Ox
97.4 F 131 20 114/89 96
05/05/23 04:15 05/05/23 07:00 05/05/23 04:15 05/05/23 04:09 05/05/23 04:15
05/04/23 05/05/23 05/06/23
06:59 06:59 06:59
Actual Weight 59.7 kg 59.1 kg
05/05/23 04:24
05/05/23 04:24
PT 20.4 Sec (11.4-14.6) H 05/02/23 17:57
INR 1.73 05/02/23 17:57
Magnesium 2.0 mg/dl (1.6-2.3) 05/04/23 02:00
05/03/23
02:22
Vqt-F-Ykymxswddld Pept 2780
LAB Results
05/02/23
17:57
Troponin I 0.022
Physical Exam
Constitutional: No acute distress and Comfortable
EENT: Moist mucous membranes
Cardiovascular: Rhythm/rate is irregular, Pedal edema present, JVD present and Systolic murmur present
Respiratory: Respiratory effort normal and Lungs clear to auscul.
GI: Soft and Distention absent
Neuro/Psych: AO x 3
Data Reviewed
-
Date of Service: May 05, 2023
EKG: Other (Tele: A fib 120s)
Labs: Labs Reviewed by me
[2023-05-05] MEDS: FLORASTOR 250 MG PO ×2 (09:10→20:13)
[2023-05-05] MEDS: SYNTHROID 150 MCG PO (09:10)
[2023-05-05] MEDS: ELIQUIS 5 MG PO (09:10)
[2023-05-05] MEDS: BUMEX 1 MG IV ×2 (09:10→15:44)
[2023-05-05] MEDS: TOPROL XL 50 MG PO ×2 (09:11→20:15)
[2023-05-05 09:13] VITALS: BP 130/97
[2023-05-05] MEDS: TOPROL XL PO (09:18)
--- NOTE | 2023-05-05 10:42 | W.PN.HOSP.TC ---
Today's Communication/Plan
-
BB
EP to discuss plans
Bumex
Assessment / Plan
Assessment / Plan
87-year-old female presented with dizziness. Patient stated that she has not felt well since she had surgery for her blood clot in the abdomen in December 2022. She has had ablations in the past and states that A-fib came back after this.
On examination awake alert oriented x 3
Cardiovascular system S1-S2 irregular, systolic murmur at apex
Chest clear to auscultation
Abdomen-soft and nontender
Mild pedal edema
# Persistent atrial fibrillation since December 2022
History of ablation 2010 and 2013
Patient on Eliquis, Cardizem 360 mg daily, metoprolol 75 mg in the morning and 50 mg in the evening as OP
She has tachybradycardia syndrome and may need ablation with pacemaker placement per discussion with cardiology
Procedure planned for Saturday if patient AGREABLE
She still has not made up her mind
Heart rate was running high yesterday low-dose beta-clay added is being increased today to 50 twice daily.
# Heart failure with preserved ejection fraction-acute on chronic
Chest x-ray CHF, proBNP 2780
She takes Bumex 0.5 mg p.o. twice daily at home-changed to 1 mg IV BID
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
# Moderate mitral regurgitation
# Mild hyponatremia-resolved
# Acute kidney injury-resolving
# Elevated AST and ALT
Possible Hepatic Congestion from CHF
Ultrasound of the abdomen-no abnormalities of the liver, bilateral pleural effusions, cholelithiasis without evidence of acute cholecystitis.
Patient does have a history of cholelithiasis
# Hypothyroidism-continue Synthroid
# Hypertension-continue metoprolol
# Hyperlipidemia/atherosclerosis-continue pravastatin
# Osteoporosis-on ibandronate
# Anxiety-on Xanax as needed
# PFO
# Cluster headaches
# Diverticulosis/IBS/celiac disease
# Ex-smoker
# DVT prophylaxis-on Eliquis
# Full code
Discussed with nursing
Discussed with cardiology
Spoke to patient's daughter in detail and updated about patient's options and the plan for now. Also aware about cholelithiasis and LFTs
All questions answered
Anticipated Discharge: 24 - 48 hours
Subjective/Interval History
-
Date of Service: May 05, 2023
Objective Data
-
Labs:
Laboratory Results
05/05/23
04:24
WBC 5.1
Hgb 13.9
Hct 42.1
Plt Count 181
Sodium 139
Potassium 3.8
Chloride 102
Carbon Dioxide 31 H
BUN 25 H
Creatinine 0.8
Glucose 104 H
Calcium 9.2
Vital Signs:
Vital Signs
Temp Pulse Resp BP Pulse Ox
98.2 F 118 18 130/97 100
05/05/23 07:35 05/05/23 09:13 05/05/23 07:35 05/05/23 09:13 05/05/23 07:37
I&O
05/04/23 05/05/23 05/06/23
06:59 06:59 06:59
Intake Total 1060 / 1060 240 / 240 480 / 480
Output Total 1000 / 1000 1700 / 1700
Balance 60 / 60 -1460 / -1460 480 / 480
[2023-05-05 11:27] VITALS: BP 113/79
[2023-05-05] MEDS: THERAGRAN 1 TABLET PO (14:02)
[2023-05-05] MEDS: VITAMIN D3 (cholecalciferol) 25 MCG PO (14:02)
[2023-05-05] MEDS: VITAMIN C 500 MG PO (14:03)
[2023-05-05] MEDS: KCL 20 MEQ PO (14:04)
[2023-05-05 15:29] VITALS: BP 114/81
[2023-05-05] MEDS: PRAVACHOL 20 MG PO (15:44)
--- NOTE | 2023-05-05 18:20 | PTCARENOTE ---
pt continues to be Afib on the monitor, HR in the 120s, VSS. pt educated on plan of care for the evening and pt verbalized understanding. call ayala within reach.
[2023-05-05 20:05] VITALS: BP 120/93
[2023-05-05 22:06] VITALS: BP 115/79
[2023-05-05] MEDS: XANAX 0.5 MG PO (22:12)
--- NOTE | 2023-05-06 01:36 | PTCARENOTE ---
Pt. remains A-fib on the monitor, HR down to the low 100's with rest post Toprol and Xanax. Pt. eager to speak with EP physician in AM, plan of care discussed. Pt. aware she is NPO for possible PPM in AM.
[2023-05-06 02:33] VITALS: BMI 20.7
[2023-05-06 04:11] VITALS: BP 109/77
[2023-05-06] MEDS: SYNTHROID 150 MCG PO (04:26)
[2023-05-06 04:45] LABS: Hematocrit 38.5 % (37.0-47.0); Hemoglobin 12.6 g/dL (12.0-16.0); Mean Corp Hgb Conc. 32.7 g/dL (33.0-37.0); Mean Corpuscular Hgb 29.8 pg (27.0-31.0); Mean Platelet Volume 12.4 fL (7.4-10.4); Platelet Count 182 10^3/uL (130-400); Red Blood Cell Count 4.23 10^6/uL (4.20-5.40); Red Cell Dist. Width 17.6 % (11.5-14.5); White Blood Cell Count 5.4 10^3/uL (4.8-10.8)
[2023-05-06 05:33] LABS: ALT (SGPT) 43 U/L (0-35); AST (SGOT) 53 U/L (14-36); Albumin 3.1 g/dl (3.5-5.0); Alkaline Phosphatase 73 U/L (38-126); Blood Urea Nitrogen 29 mg/dl (7-17); Carbon Dioxide 32 mmol/L (22-30); Chloride 99 mmol/L (98-107); Estimated Creatinine Clearance 53 ml/min; Glucose 94 mg/dl (70-99); Potassium 3.8 mmol/L (3.5-5.1); Sodium 138 mmol/L (135-145); Total Bilirubin 1.1 mg/dl (0.2-1.3); Total Protein 5.9 g/dl (6.3-8.2); eGFR > 60.00
[2023-05-06 07:45] VITALS: BP 142/98
[2023-05-06] MEDS: FLORASTOR 250 MG PO ×2 (08:23→21:13)
[2023-05-06] MEDS: TOPROL XL 50 MG PO ×2 (08:26→21:13)
[2023-05-06] MEDS: BUMEX 1 MG IV (08:28)
--- NOTE | 2023-05-06 10:54 | W.PN.HOSP.TC ---
Today's Communication/Plan
-
IV Bumex
Pacemaker
Assessment / Plan
Assessment / Plan
87-year-old female presented with dizziness. Patient stated that she has not felt well since she had surgery for her blood clot in the abdomen in December 2022. She has had ablations in the past and states that A-fib came back after this.
On examination awake alert oriented x 3
Cardiovascular system S1-S2 irregular, systolic murmur at apex
Chest clear to auscultation
Abdomen-soft and nontender
Mild pedal edema
# Persistent atrial fibrillation since December 2022
History of ablation 2010 and 2013
Patient on Eliquis, Cardizem 360 mg daily, metoprolol 75 mg in the morning and 50 mg in the evening as OP
She has tachybradycardia syndrome and may need ablation with pacemaker placement per discussion with cardiology
Procedure planned for today
Continue metoprolol 50 twice daily.
Patient is agreeable for procedure today
# Heart failure with preserved ejection fraction-acute on chronic
Chest x-ray CHF, proBNP 2780
She takes Bumex 0.5 mg p.o. twice daily at home-changed to 1 mg IV BID
Weight slowly coming down
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
# Moderate mitral regurgitation
# Mild hyponatremia-resolved
# Acute kidney injury-resolving
# Elevated AST and ALT
Possible Hepatic Congestion from CHF- trending down
Ultrasound of the abdomen-no abnormalities of the liver, bilateral pleural effusions, cholelithiasis without evidence of acute cholecystitis.
Patient does have a history of cholelithiasis
# Hypothyroidism-continue Synthroid
# Hypertension-continue metoprolol
# Hyperlipidemia/atherosclerosis-continue pravastatin
# Osteoporosis-on ibandronate
# Anxiety-on Xanax as needed
# PFO
# Cluster headaches
# Diverticulosis/IBS/celiac disease
# Ex-smoker
# DVT prophylaxis-on Eliquis
# Full code
Discussed with nursing
Discussed with cardiology
Patient is an extremely anxious person who worries about almost everything. She states that she wants sleep after the pacemaker and will research for any support groups. We discussed that her heart rate is being monitored on telemetry. Emotional
support provided.
Anticipated Discharge: Within 24 hours
Subjective/Interval History
-
Date of Service: May 06, 2023
Objective Data
-
Labs:
Laboratory Results
05/06/23
04:21
WBC 5.4
Hgb 12.6
Hct 38.5
Plt Count 182
Sodium 138
Potassium 3.8
Chloride 99
Carbon Dioxide 32 H
BUN 29 H
Creatinine 0.7
Glucose 94
Calcium 9.0
Total Bilirubin 1.1
AST 53 H
ALT 43 H
Alkaline Phosphatase 73
Vital Signs:
Vital Signs
Temp Pulse Resp BP Pulse Ox
97.3 F 108 20 109/77 93
05/06/23 07:48 05/06/23 04:11 05/06/23 07:48 05/06/23 04:11 05/06/23 07:48
I&O
05/05/23 05/06/23 05/07/23
06:59 06:59 06:59
Intake Total 240 / 240 480 / 480
Output Total 1700 / 1700 1050 / 1050
Balance -1460 / -1460 -570 / -570
[2023-05-06 11:18] VITALS: BP 116/73
--- NOTE | 2023-05-06 11:24 | W.PN.CD ---
Today's Communication / Plan
-
- PPM today (PROCESSING TECHNICIAN-P)
- uptitrate rate control post implant.
Impression / Plan
-
Impression: 87F with palpitations. 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
PMH: persistent atrial fibrillation s/p PVI x2, chronic HFPEF, moderate mitral regurgitation, and labile hypertension.
Plan:
Persistent atrial fibrillation since SMA thrombosis critical illness
-AF rate control was marginal on diltiazem 360 and metoprolol 50 BID (See Apr 12 Holter - Avg 91 with high of 127 but 44% over 100). She has intolerances at higher doses.
-As previously discussed by Dr Blackwood, we went over (1) repeat ablation (2) more medication or (3) ablate and pace strategy (SR preference and recommendation) at visit in March, and again on 05/03.
-She has agreed to proceed with pace and ablate strategy.
- Repeat ablation is a higher risk for her frailty and advanced age. The atypical flutter likely jaleel require aggressive ablation in the [place] with higher risk of complications.
- She has already failed medical treatment and is staying in RVR to avoid the bradycardia associated with her meds.
-rate: on Toprol XL to 50mg bid
-PVI x2 in the past
-Oral Anticoagulation: Apixaban
-[id number]: 7
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
-echo 05/03: EF 40%, down from 55-60% in 12/2022, with MR now moderate/severe (from moderate)
-severe, requiring close monitoring of labs and tele
-suspect in setting of A fib with RVR
-Toprol being titrated as above
-bumex 1mg IV bid
-others meds limited by intolerances
HTN - stable
Moderate/severe MR, mild/mod TR, pulm HTN
-diurese
Patent foramen ovale
Confusion
Hypothyroidism, on levothyroxine
Dispo
- significant component of anxiety and deconditioning to her symptoms.
- Continue tele and conversations about rate control
Subjective:
Continues with palps.
Physical Exam
Vital Signs/Labs
Vital Signs
Temp Pulse Resp BP Pulse Ox
97.3 F 108 20 109/77 93
05/06/23 07:48 05/06/23 04:11 05/06/23 07:48 05/06/23 04:11 05/06/23 07:48
05/05/23 05/06/23 05/07/23
06:59 06:59 06:59
Actual Weight 59.1 kg 58.2 kg
05/06/23 04:21
05/06/23 04:21
PT 20.4 Sec (11.4-14.6) H 05/02/23 17:57
INR 1.73 05/02/23 17:57
Magnesium 2.0 mg/dl (1.6-2.3) 05/04/23 02:00
05/03/23
02:22
Asm-I-Aucewhlmbxt Pept 2780
Physical Exam
Constitutional: No acute distress and Comfortable
EENT: Anicteric and Moist mucous membranes
Cardiovascular: Rhythm/rate is irregular, Systolic murmur present and Diastolic murmur present
Respiratory: Respiratory effort normal, Lungs clear to auscul. and Rhonchi Present
GI: Soft, Flat, Non tender and Normal bowel sounds
Neuro/Psych: Alert, Oriented and AO x 3
Data Reviewed
-
Date of Service: May 06, 2023
Medical Decision Making: Reviewed Test Results, Independent Historian Assessment, Test Interpretation and Review of Case with other Provider
EKG: Tracing Personally Visualized and interpreted
Echo: Report Reviewed by me
Labs: Labs Reviewed by me
Old Records: Reviewed
--- NOTE | 2023-05-06 15:34 | CM ---
spoke to pt in room, she is concerned about going home after dc and needing help with food shopping, putting on compression socks and 'moving furniture'. she tells e that she moves furniture often to redecorate. we discussed that these things are
considered correction care- meaning the family responsibility or private pay for companions. information given to pt on private pay companions. she also would be willing to go to SNF if recomm by PT/OT. await recomm. pt has been at [facility] before. cm to
follow, pt for PPM today.
--- NOTE | 2023-05-06 16:00 | PN.CDI ---
CDI
- -
CDI:
Physician Documentation Request
Admit Date: 05/02/23 20:16
Dear Doctor Farideh,
05/06 Hospitalist progress note states ' Heart failure with preserved ejection fraction-acute on chronic'
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
In an attempt to clarify potentially conflicting documentation , please clarify the type of heart failure:
Type
Systolic
Diastolic
Other
Use of terms such as suspected, likely, concern for, or probable (associated with a specific diagnosis that is being evaluated, monitored, or treated as if it exists) are acceptable and can be coded in the inpatient setting, when documented at the
time of discharge.
Thank you,
Chacha Evans RN, BSN
CDI Specialist
tiger text
Please use your independent medical judgment in providing your response.
[2023-05-06 16:29] VITALS: BP 133/80
--- NOTE | 2023-05-06 16:34 | PTCARENOTE ---
Rec'd Pt post ppm, L anterior chest wall pressure dsg D+I. Pt awake, alert but thought her room was temporary and that she was going to upstairs. Pt easily reoriented.
--- NOTE | 2023-05-06 16:35 | ITS.CL.PACE ---
Consulting Practice Director - Pacemaker Implant
Pacemaker Implant
Procedure Report:
FRONT END ENGINEER-P with Bi-Ventricular permanent Pacemaker Placement:
Ms. 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
60% in 12/2022 has gone into permanent atrial fibrillation with difficult to control rates and is planning to undergo AVJ ablation is recommended to get a biventricular pacemaker.
Indications: Pending complete heart block by AVJ ablation and drop in LV systolic function
Date of the Procedure: 05/06/2023
Pre-Operative Diagnosis: Permanent atrial fibrillation with plan for AVJ ablation and ablate and pace strategy
Post-Operative Diagnosis: Permanent atrial fibrillation with plan for AVJ ablation and ablate and pace strategy
Procedure Performed: FRONT END ENGINEER-P with BIVENTRICULAR PERMANENT PACEMAKER IMPLANTATION
Performing Physician:
Jos Fleming MD
Anesthesia:
See anesthesia records
Detailed Description of the Procedure:
The patient was identified using hospital identification and informed consent obtained for the procedure. The risks were explained to the patient and the family including, but not limited to: Bleeding, infection, arrhythmia, stroke,
vascular/cardiac/lung puncture, surgery, pacemaker dependency/device malfunction. All questions were answered.
The initial rhythm was atrial fibrillation with RVR.
A surgical pause was performed in accordance with hospital regulations. Anesthesia service provided sedation as reported separately. Antibiotics administered IV for risk of bacterial colonization. After obtaining informed and written consent, the
patient was brought to the electrophysiology laboratory.
A timeout was performed immediately before the procedure. The left chest was prepped from the nipple to the angle of the jaw with chlorhexidine, and draped following sterile technique in usual routine.�
The left arm venogram was done. There were open axillary vein and the subclavian vein patency documented. Following infiltration with local anesthetic, the axillary vein was accessed under fluoroscopic and the venogram guidance using the
micro-puncture apparatus. The guide wires were advanced to the inferior vena cava (IVC) under flouro guidance.
A subcutaneous pocket was created with blunt dissection and use of electrocautery. Hemostasis was excellent.
Attention then was turned to the coronary sinus. The guide wire was advanced to the IVC and a long hemostatic peel away sheath was advanced to the RA.
The CS was cannulated using glide wire and sheath was advanced into the CS.
Coronary sinus venography was obtained with a balloon catheter in the CS. ~7 cc contrast used. CS anatomy revealed a posterolateral branch and an angela lateral vein. The posterolateral branch was accessed using a BMW wire. The double canted
quadripolar lead was advanced into the posterolateral branch. It had excellent thresholds and great EKG morphology. During pacing, QRS complex was favorable, with a QS in lateral leads and RBBB configuration during LV pacing. It was deemed ideal for
biventricular pacing. Diaphragmatic stimulation was not present with high output pacing here.
The long guiding sheath was removed from the CS without change in lead position, impedance, sensing, or capture. The lead was sutured to the underlying pectoralis fascia with 0-silk stitches.
Attention then was turned to the left bundle branch pacing lead. The guide wire was advanced to the RA and was advanced to the RV. The preformed curved long hemostatic peel away HIS sheath was advanced into the RV cavity. A left bundle pacing wire
was advanced into the sheath to the tip with ventricular signals noted with unipolar manner under guidance of the flouroscopy and the pacing wire signals. The sheath with the pacing lead was moved deeper into the RV cavity on the septum at a more
inferior and distal to the HIS signals.
Once adequate signals were noted on the electrograms of the pacing lead in the sheath with W pattern signals on the RV septum, the lead was advanced and clockwise turns were done under fluoroscopic guidance. The septum was engaged and the lead was
paced intermittently after every 2-3 turns. The Impedance of the lead was measured that remained stable around 800 Ohm.
The ventricular capture was monitored throughout and the captures gradually changed from RV pacing to non-selective pacing to LBB pacing with R wave on V1.
With RBBB pattern noted on the pacing lead, it was decided to accept the location as optimal location. The long guiding sheath was cut and removed from the RV without change in lead position, impedance, sensing, or capture. The lead was sutured to
the underlying pectoralis fascia with 0-silk stitches. A purse string suture was deployed using the 2-0 Vicryl suture.
The leads were secured to the deep fascia with 0-Silk sutures placed on the anchoring sleeves. The leads were attached to the pulse generator in standard configuration with acceptable sensing and threshold parameters.
The atrial slot was plugged.
The pocket was irrigated with antibiotic solution; the pocket was inspected with no active bleeding noted. The device and the leads were placed in the pocket.
Deep subcutaneous tissues were closed with 2-0 V loc sutures; intermediate subcutaneous tissue was reopposed using a running 2-0 V loc suture, and the dermis was reopposed using a running 4-0 VLoc suture. Sponge counts / sharp counts were
appropriate.
A pressure dressing was applied.
Procedure End:
The procedure was tolerated well. Aquacel bandaged was applied. A pressure dressing was applied.
Estimated Blood loss:
5 cc
Specimens Removed:
No cultures and no specimens were obtained. No intraoperative pathology was identified.
Urine output:
None
Packs / Drains/ Tubes:
None
Instrument / Sponge Count Correct:
Yes
Flouro time:
3.9min / 0.77 Gycm2
Complications of the Procedure:
None
Condition of Patient at Time of Transfer:
Hemodynamically stable with no neurological or vascular compromise.
Device information:�
Generator: [employer] Model: W4TR01; Serial # [id number]�
����������� Atrial slot: filled using [employer] pin plug � 6725 � Serial #[id number]�
����������� RV Lead: [employer]tronic; Model: 3830-69; Serial # [id number]
����������������������� Measured data on the RV lead was sensing of 7.6mV, impedance of 760 ohms and threshold of 0.75 V at 0.4ms�
����������� LV pacing lead: [employer]; Model: 4298-88; Serial # [id number]
����������������������� Measured data on the LV lead was impedance of 608 ohms and threshold of 0.75V at 0.4ms (LV1 to LV2; diaphragm not seen at max output).
PROGRAMMING PARAMETERS:�
Daniel parameter settings were VVIR 60-120 �
�����������
�
Summary:
Successful implantation of MRI compatible Medtronic FRONT END ENGINEER-P system.
Results/Recommendations:
-Please follow up CXR�
-Please provide patient with adequate pain control�
Instructions to be given to patient:�
- Please follow up with [facility] at [address] [place] [address] ([phone]) to get your wound checked in 2 weeks of your discharge. Then follow with
- Do not wet incision site until after it is evaluated at cardiology clinic. No baths or showers until then. Sponge baths / showers are OK but dab dry the dressing after it is wet.�
- Allow 'steri strips' to fall off on their own�
- Do not lift left elbow above shoulder, particularly with sudden jerking movements, for 1 month�
- Do not lift anything weighing more than 5 pounds with the left arm for 1 month�
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
Jos Fleming MD
Electrophysiology
[2023-05-06] MEDS: PRAVACHOL 20 MG PO (17:10)
[2023-05-06] MEDS: KCL 20 MEQ PO (17:11)
[2023-05-06] MEDS: LANOXIN 250 MCG PO (17:22)
[2023-05-06] MEDS: VITAMIN D3 (cholecalciferol) PO (18:03)
[2023-05-06] MEDS: VITAMIN C PO (18:03)
[2023-05-06] MEDS: THERAGRAN PO (18:03)
[2023-05-06 19:27] VITALS: BP 116/72
--- NOTE | 2023-05-06 20:46 | PTCARENOTE ---
Assumed care. Patient walking in room to the bathroom, immobilizer intact, left chest wall pressure dressing. Assisted to wheelchair and taken to radiology for her CXR. Patient back in room in chair, call ayala in reach
[2023-05-06] MEDS: XANAX 0.25 MG PO (21:42)
[2023-05-06] MEDS: TYLENOL 650 MG PO (21:42)
[2023-05-06 23:16] VITALS: BP 144/95
[2023-05-07] VITALS (11 sets, daily range): BP systolic 121–149; BP diastolic 65–89; PULSE 99–109; O2SAT 91–96; BMI 20.8
--- NOTE | 2023-05-07 02:49 | PTCARENOTE ---
Patient anxious about hospitalization, medicated with Xanax at hs. Tylenol for given for low back pain at hs. Patient sleeping comfortable, ringing the ayala for assistance to bedside commode. V-Paced with underlying A-FIB HR 90-120's, call ayala in
reach
[2023-05-07] MEDS: TYLENOL 650 MG PO ×3 (03:24→21:48)
[2023-05-07 03:44] LABS: Hemoglobin 12.3 g/dL (12.0-16.0); Mean Corp Hgb Conc. 34.2 g/dL (33.0-37.0); Mean Corpuscular Volume 87.8 fL (81.0-99.0); Mean Platelet Volume 12.2 fL (7.4-10.4); Platelet Count 172 10^3/uL (130-400); Red Cell Dist. Width 17.9 % (11.5-14.5)
[2023-05-07 03:58] LABS: Blood Urea Nitrogen 30 mg/dl (7-17); Calcium 8.9 mg/dl (8.4-10.2); Carbon Dioxide 29 mmol/L (22-30); Chloride 100 mmol/L (98-107); Estimated Creatinine Clearance 46 ml/min; Glucose 102 mg/dl (70-99); Potassium 3.7 mmol/L (3.5-5.1); Sodium 138 mmol/L (135-145); eGFR > 60.00
[2023-05-07] MEDS: SYNTHROID 150 MCG PO (06:33)
--- NOTE | 2023-05-07 07:48 | W.PN.CD ---
Today's Communication / Plan
-
- Improve rate control (Metoprolol and digoxin)
- Rate control today - possible discharge in AM
- Bumex PO 1 mg QD and second dose prn at discharge
Impression / Plan
-
Impression: 87F with palpitations. 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
PMH: persistent atrial fibrillation s/p PVI x2, chronic HFPEF, moderate mitral regurgitation, and labile hypertension.
Plan:
Permanent atrial fibrillation since SMA thrombosis critical illness
-AF rate control was marginal on diltiazem 360 and metoprolol 50 BID (See Apr 12 Holter - Avg 91 with high of 127 but 44% over 100). She has intolerances at higher doses.
-Limited due to hypotension.
-Planned for ablate and pace strategy
-s/p PROFESSOR OF VEGETABLE SCIENCE-P 05/06/23 - CS lead and LBB pacing lead
-Plan for AVJ ablation in 4-6mweeks
-rate: Toprol XL to 50mg bid and added digoxin until the AVJ ablation.
-PVI x2 - 2010 and 2013
-Oral Anticoagulation: Apixaban
-[id number]: 7
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
-echo 05/03: EF 40%, down from 55-60% in 12/2022, with MR now moderate/severe (from moderate)
-severe, requiring close monitoring of labs and tele
-suspect in setting of A fib with RVR
-Toprol being titrated as above
-bumex 1mg IV bid
-others meds limited by intolerances
HTN - stable
Moderate/severe MR, mild/mod TR, pulm HTN
-diurese
Patent foramen ovale
Confusion
Hypothyroidism, on levothyroxine
Dispo
- significant component of anxiety and deconditioning to her symptoms.
- Continue tele and conversations about rate control
Subjective:
Continues with palps.
Physical Exam
Vital Signs/Labs
Vital Signs
Temp Pulse Resp BP Pulse Ox
97.2 F 105 16 126/84 94
05/07/23 07:20 05/07/23 07:20 05/07/23 07:20 05/07/23 03:05 05/07/23 07:20
05/06/23 05/07/23 05/08/23
06:59 06:59 06:59
Actual Weight 58.2 kg 58.3 kg
05/07/23 03:31
05/07/23 03:31
PT 20.4 Sec (11.4-14.6) H 05/02/23 17:57
INR 1.73 05/02/23 17:57
Magnesium 2.0 mg/dl (1.6-2.3) 05/04/23 02:00
05/03/23
02:22
Edh-C-Ypalmvhjvuz Pept 2780
Physical Exam
Constitutional: No acute distress and Comfortable
EENT: Anicteric and Moist mucous membranes
Cardiovascular: Pedal edema is absent, Rhythm/rate is irregular, JVD present and Systolic murmur present
Respiratory: Respiratory effort normal and Wheeze Absent
GI: Soft, Flat, Non tender and Normal bowel sounds
Neuro/Psych: Alert, Oriented and AO x 3
Other: Cardiac Device Site
Data Reviewed
-
Date of Service: May 07, 2023
Medical Decision Making: Reviewed Test Results, Independent Historian Assessment, Test Interpretation and Review of Case with other Provider
EKG: Tracing Personally Visualized and interpreted
Echo: Report Reviewed by me
X-Ray/CT/US/MRI/NUC/PET: Image Personally Visualized and interpreted
Labs: Labs Reviewed by me
Old Records: Reviewed
[2023-05-07] MEDS: BUMEX 1 MG IV ×2 (08:57→16:02)
[2023-05-07] MEDS: TOPROL XL 50 MG PO (08:58)
[2023-05-07] MEDS: FLORASTOR 250 MG PO ×2 (08:58→21:04)
[2023-05-07] MEDS: ELIQUIS 5 MG PO ×2 (08:59→21:05)
--- NOTE | 2023-05-07 10:24 | W.PN.HOSP.TC ---
Today's Communication/Plan
-
Diuresis
Consider increasing rate controlling agents. Patient was on metoprolol 75 mg in the morning and 50 mg in the evening as outpatient along with Cardizem 360 mg daily.
Discharge plans per cardiology
Assessment / Plan
Assessment / Plan
87-year-old female presented with dizziness. Patient stated that she has not felt well since she had surgery for her blood clot in the abdomen in December 2022. She has had ablations in the past and states that A-fib came back after this.
On examination awake alert oriented x 3
Cardiovascular system S1-S2 irregular, systolic murmur at apex
Chest clear to auscultation
Abdomen-soft and nontender
Mild pedal edema
# Persistent atrial fibrillation since December 2022
History of ablation 2010 and 2013
Patient on Eliquis, Cardizem 360 mg daily, metoprolol 75 mg in the morning and 50 mg in the evening as OP
She has tachybradycardia syndrome and may need ablation with pacemaker placement per discussion with cardiology
Pacemaker placement done on 05/06/2023
Continue metoprolol 50 twice daily., Digoxin started
Consider increasing rate controlling agents. Patient was on metoprolol 75 mg in the morning and 50 mg in the evening as outpatient along with Cardizem 360 mg daily.
# Heart failure with reduced ejection fraction-acute on chronic
Chest x-ray CHF, proBNP 2780
She takes Bumex 0.5 mg p.o. twice daily at home-changed to 1 mg IV BID
Weight slowly coming down
Echo 05/03/2023-moderately reduced LV systolic function. Ejection fraction 40%. Septal dyskinesis. Moderate to severe MR. Mild to moderate TR. Severely elevated pulmonary artery systolic pressure. Trivial pericardial effusion. Pleural effusion.
Ejection fraction was 55 to 60% in December 2022. Septal dyskinesis is worse. MR has progressed. TR has progressed. Pulmonary artery systolic pressure has increased.
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
# Moderate mitral regurgitation
# Mild hyponatremia-resolved
# Acute kidney injury-resolving
# Elevated AST and ALT
Possible Hepatic Congestion from CHF- trending down
Ultrasound of the abdomen-no abnormalities of the liver, bilateral pleural effusions, cholelithiasis without evidence of acute cholecystitis.
Patient does have a history of cholelithiasis
# Hypothyroidism-continue Synthroid
# Hypertension-continue metoprolol
# Hyperlipidemia/atherosclerosis-continue pravastatin
# Osteoporosis-on ibandronate
# Anxiety-on Xanax as needed
# PFO
# Cluster headaches
# Diverticulosis/IBS/celiac disease
# Ex-smoker
# DVT prophylaxis-on Eliquis
# Full code
Discussed with nursing
Discussed with cardiology
Anticipated Discharge: Within 24 hours
Subjective/Interval History
-
Date of Service: May 07, 2023
Objective Data
-
Labs:
Laboratory Results
05/07/23
03:31
WBC 6.0
Hgb 12.3
Hct 36.0 L
Plt Count 172
Sodium 138
Potassium 3.7
Chloride 100
Carbon Dioxide 29
BUN 30 H
Creatinine 0.8
Glucose 102 H
Calcium 8.9
Vital Signs:
Vital Signs
Temp Pulse Resp BP Pulse Ox
97.2 F 105 16 126/84 94
05/07/23 07:20 05/07/23 07:20 05/07/23 07:20 05/07/23 03:05 05/07/23 07:20
I&O
05/06/23 05/07/23 05/08/23
06:59 06:59 06:59
Intake Total 480 / 480
Output Total 1050 / 1050
Balance -570 / -570
--- NOTE | 2023-05-07 10:34 | PTCARENOTE ---
Pt anxious this morning, reviewed post pacemaker instructions with her several times. She does not feel ready to go home.
[2023-05-07] MEDS: LANOXIN 250 MCG PO (11:25)
[2023-05-07] MEDS: KCL 20 MEQ PO (11:25)
[2023-05-07] MEDS: THERAGRAN 1 TABLET PO (11:26)
[2023-05-07] MEDS: VITAMIN D3 (cholecalciferol) 25 MCG PO (11:26)
[2023-05-07] MEDS: VITAMIN C 500 MG PO (11:26)
--- NOTE | 2023-05-07 13:52 | CM ---
spoke to pt and daughter in room, pt tells me that she cannot go home because she lives alone and cannot cut her food or tie her shoelaces. we discussed that there are no restrictions to her cutting her own food with the pacemaker arm. she states
she needs rehab or 24 hr hour care. Awaiting PT eval to see if rehab is recomm. we discussed if PT recomm home VN that i could set that up for her at her apt. and if she wants 24/7 care she would have to arrange private care. she stated that that
would take a few days to set up and she would like to stay here till then. i explained that she is cleared medically and once her dc order is written, she can go home. daughter in room and has not offered to stay with the pt or to have her stay with
her at home.
--- NOTE | 2023-05-07 15:38 | CM ---
spoke with pt and daughter in room, patient spoke with recoater and is ok with going home, she is agreeable to VN with RN/PT/OT services. referral faxed and accepted.
[2023-05-07] MEDS: LANOXIN 250 MCG IV (15:58)
[2023-05-07] MEDS: PRAVACHOL 20 MG PO (18:21)
--- NOTE | 2023-05-07 18:35 | PTCARENOTE ---
Pt eating dinner tonight, she is ambulating in room, aman well. She worked with PT and OT today and seems a bit more confident moving around tonight as compared to this morning
[2023-05-07] MEDS: TOPROL XL 75 MG PO (21:04)
[2023-05-07] MEDS: XANAX 0.25 MG PO (21:48)
--- NOTE | 2023-05-07 22:05 | PTCARENOTE ---
Patient walking in room independently. LUE precautions reviewed. Pacer site tender to touch, Tylenol given and Xanax given for sleep/anxiety. V-paced with underlying AFIB HR 90-109. Complaints of an upset stomach after dinner, 2 loose stools, flaca
niharika given with some relief. Patient in bed, lights dimmed, call ayala in reach
[2023-05-08 04:14] VITALS: BP 147/71
[2023-05-08] MEDS: TYLENOL 650 MG PO ×2 (04:37→13:31)
[2023-05-08] MEDS: SYNTHROID 150 MCG PO (04:37)
[2023-05-08 05:30] LABS: Blood Urea Nitrogen 23 mg/dl (7-17); Calcium 8.6 mg/dl (8.4-10.2); Carbon Dioxide 34 mmol/L (22-30); Chloride 101 mmol/L (98-107); Estimated Creatinine Clearance 53 ml/min; Glucose 83 mg/dl (70-99); Magnesium 1.6 mg/dl (1.6-2.3); Potassium 3.4 mmol/L (3.5-5.1); Sodium 138 mmol/L (135-145); eGFR > 60.00
[2023-05-08 06:00] VITALS: BMI 20.1
[2023-05-08 07:42] VITALS: BP 151/82
--- NOTE | 2023-05-08 08:03 | W.PN.CD ---
Today's Communication / Plan
-
- No cardiac contraindication to discharge
- Meds: KCl 20 po qd, pravastatin 20 po qd, apixaban 2.5 po BID (correct dose now that weight is less than 60 kg), bumex 1 po BID, digoxin 0.125 po qd (lower at discharge), Torpol 75 po BID
- BMP in 1 week
- Cardiac rehab after OV
- Follow up: 05/14 9AM with Romina Toussaint
Impression / Plan
-
Impression: 87F with palpitations. 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
PMH: persistent atrial fibrillation s/p PVI x2, chronic HFPEF, moderate mitral regurgitation, and labile hypertension.
Plan:
Permanent atrial fibrillation since SMA thrombosis critical illness
- Planned for ablate and pace strategy
- s/p DRUM BARKER OPERATOR-P 05/06/23 - CS lead and LBB pacing lead
- Plan for AVJ ablation in 4-6mweeks
- rate: Toprol XL to 50mg bid and added digoxin until the AVJ ablation.
- Oral Anticoagulation: Apixaban
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
- weight down at least 15 lbs
- Toprol
- rate control with Toprol and dig, eventual AVN ablation
- other GDMT limited by intolerances
HTN - stable
Moderate/severe MR, mild/mod TR, pulm HTN - eventual repeat. Historically she has had moderate MR
Patent foramen ovale
Confusion
Hypothyroidism, on levothyroxine
Dispo
- No cardiac contraindication to discharge
- Meds: KCl 20 po qd, pravastatin 20 po qd, apixaban 2.5 po BID (correct dose now that weight is less than 60 kg), bumex 1 po BID, digoxin 0.125 po qd (lower at discharge), Torpol 75 po BID
- BMP in 1 week
- Cardiac rehab after OV
- Follow up: 05/14 9AM with Romina Toussaint
Subjective: She remains aware of every single heart beat. She has mild pain at incision site, she does not know if she has dyspnea.
Generic Name Dose Route Start Last Admin
Trade Name Freq PRN Reason Stop Dose Admin
Potassium Chloride 20 meq 05/03/23 12:00
Potassium Chloride 20 Meq Extended Release Tablet PO 05/31/23 11:59
DAILY@1200 HUNG
Pravastatin Sodium 20 mg 05/03/23 18:00
Pravastatin 20 Mg Tablet PO 05/31/23 17:59
QPM HUNG
Apixaban 5 mg 05/03/23 20:00
Apixaban (Eliquis) 5 Mg Tablet PO 05/31/23 19:59
BID HUNG
Bumetanide 1 mg 05/04/23 08:00
Bumetanide (0.25 Mg/1 Ml) 4 Ml Vial IV 06/01/23 07:59
BID AT 0800,1600 HUNG
Digoxin 250 mcg 05/06/23 17:00
Digoxin 250 Mcg Tablet PO 06/03/23 16:59
NOON HUNG
Metoprolol Succinate 75 mg 05/07/23 20:00
Metoprolol 25 Mg Extended Release Tablet PO 06/04/23 19:59
BID HUNG
Physical Exam
Vital Signs/Labs
Vital Signs
Temp Pulse Resp BP Pulse Ox
36.6 C 79 16 151/82 96
05/08/23 07:41 05/08/23 07:42 05/08/23 07:41 05/08/23 07:42 05/08/23 07:41
05/07/23 05/08/23 05/09/23
06:59 06:59 06:59
Actual Weight 128 lb 8.472 oz 124 lb 5.451 oz
05/07/23 03:31
05/08/23 04:22
PT 20.4 Sec (11.4-14.6) H 05/02/23 17:57
INR 1.73 05/02/23 17:57
Magnesium 1.6 mg/dl (1.6-2.3) 05/08/23 04:22
05/03/23
02:22
Ytr-X-Kkxszbqdhlt Pept 2780
Physical Exam
Constitutional: No acute distress
EENT: Anicteric and Moist mucous membranes
Cardiovascular: Pedal edema is absent, Systolic murmur absent, Diastolic murmur absent and Rhythm/rate is irregular
Respiratory: Respiratory effort normal
GI: Soft, Distention absent, Non tender and Normal bowel sounds
Neuro/Psych: Alert and Oriented
Other: Skin
Data Reviewed
-
Date of Service: May 08, 2023
Echo: Other (Tele AF with DIRECTOR OF PRODUCT DESIGN and occasional PACs)
[2023-05-08] MEDS: ELIQUIS 5 MG PO (09:33)
[2023-05-08] MEDS: FLORASTOR 250 MG PO (09:33)
[2023-05-08] MEDS: TOPROL XL 75 MG PO (09:34)
[2023-05-08] MEDS: BUMEX 1 MG PO (09:49)
[2023-05-08] MEDS: KCL 20 MEQ PO (09:49)
[2023-05-08] MEDS: MAGNESIUM OXIDE 500 MG PO (09:50)
[2023-05-08] MEDS: BUMEX IV (10:03)
--- NOTE | 2023-05-08 10:04 | PTCARENOTE ---
Addendum entered by Isela Anglin RN 05/08/23 10:13:
Pt is V-paced w/underlying Afib on telemetry monitoring, not SR as noted previously.
Original Note:
Rec'd pt from prev nsg shift AAOx3 w/no c/o CP or SOB. Pt is anxious re: going & her LUE restrictions r/t her recent pacemaker placement. OT in to see pt & they worked w/pt on ADL's w/the restrictions & pt appears more relaxed about being
discharged to . Pt's VS stable & pt is SR on telemetry monitoring. Pt w/call ayala within reach & no addtl needs at this time.
--- NOTE | 2023-05-08 10:38 | W.PN.HOSP.TC ---
Today's Communication/Plan
-
Discharge
Assessment / Plan
Assessment / Plan
87-year-old female presented with dizziness. Patient stated that she has not felt well since she had surgery for her blood clot in the abdomen in December 2022. She has had ablations in the past and states that A-fib came back after this.
On examination awake alert oriented x 3
Cardiovascular system S1-S2 irregular, systolic murmur at apex
Chest clear to auscultation
Abdomen-soft and nontender
Trace pedal edema
# Persistent atrial fibrillation since December 2022
History of ablation 2010 and 2013
Patient on Eliquis, Cardizem 360 mg daily, metoprolol 75 mg in the morning and 50 mg in the evening as OP
She has tachybradycardia syndrome and may need ablation with pacemaker placement per discussion with cardiology
Pacemaker placement done on 05/06/2023
Continue metoprolol 50 twice daily., Digoxin started
Metoprolol 75 mg BID
# Heart failure with reduced ejection fraction-acute on chronic
Chest x-ray CHF, proBNP 2780
She takes Bumex 0.5 mg p.o. twice daily at home-chaged to po here
Lost about 10 kg
Weight slowly coming down
Echo 05/03/2023-moderately reduced LV systolic function. Ejection fraction 40%. Septal dyskinesis. Moderate to severe MR. Mild to moderate TR. Severely elevated pulmonary artery systolic pressure. Trivial pericardial effusion. Pleural effusion.
Ejection fraction was 55 to 60% in December 2022. Septal dyskinesis is worse. MR has progressed. TR has progressed. Pulmonary artery systolic pressure has increased.
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
# Moderate mitral regurgitation
# Mild hyponatremia-resolved
# Acute kidney injury-resolved
# Elevated AST and ALT
Possible Hepatic Congestion from CHF- trending down
Ultrasound of the abdomen-no abnormalities of the liver, bilateral pleural effusions, cholelithiasis without evidence of acute cholecystitis.
Patient does have a history of cholelithiasis
# Hypothyroidism-continue Synthroid
# Hypertension-continue metoprolol
# Hyperlipidemia/atherosclerosis-continue pravastatin
# Osteoporosis-on ibandronate
# Anxiety-on Xanax as needed
# PFO
# Cluster headaches
# Diverticulosis/IBS/celiac disease
# Ex-smoker
# DVT prophylaxis-on Eliquis
# Full code
Discussed with nursing
Discussed with cardiology
Called daughter - went to message, left message
Discharge time 33 min
Anticipated Discharge: Today
Subjective/Interval History
-
Date of Service: May 08, 2023
Objective Data
-
Labs:
Laboratory Results
05/08/23
04:22
Sodium 138
Potassium 3.4 L
Chloride 101
Carbon Dioxide 34 H
BUN 23 H
Creatinine 0.7
Glucose 83
Calcium 8.6
Vital Signs:
Vital Signs
Temp Pulse Resp BP Pulse Ox
97.9 F 93 16 151/82 96
05/08/23 07:41 05/08/23 08:00 05/08/23 07:41 05/08/23 07:42 05/08/23 07:41
I&O
05/07/23 05/08/23 05/09/23
06:59 06:59 06:59
Output Total 1000 / 1000
Balance -1000 / -1000
--- NOTE | 2023-05-08 10:55 | W.DS.TRANS ---
Addendum entered and electronically signed by Maylin Gong MD 05/08/23 16:58:
Dictation- [id number]
Original Note:
DC Summary - Rate Setter
-
Discharge Instructions:
Sleep Apnea Risk Intermediate
Discharge Diagnosis/Procedures Pacemaker implant for tachybradycardia syndrome,
CHF, history of SMA thrombosis, mitral
regurgitation, elevated LFTs, hypothyroidism,
hypertension, high cholesterol, osteoporosis,
anxiety, gallstones
Diet 2 Gram Sodium,Restrict fluids to 48 oz
Activity Other activity
Additional Activity Follow postoperative instructions
Driving Restrictions No driving for 1 week
Blood Work CBC, CMP in 1 week. Dig level 1 week
Other Services VN
Specialty Instructions Weigh Daily
Stop these medications: Stop Cardizem. Please note dose changes for
Bumex, Eliquis, metoprolol
Instructions:
Stand-Alone Forms: DC Inst - Implanted Device
Changes to Home Medications: Yes
Discharge Medications:
DC Medications w/original date entered in Digital Message Display
pravastatin 20 mg tablet 20 mg PO QPM High Cholesterol 08/24/16
ibandronate 150 mg tablet 150 mg PO QMONTH OSTEOPOROSIS 01/15/23
alprazolam 0.5 mg tablet (Xanax) 0.5 mg PO HS PRN anxiety/sleep 05/02/23
apixaban 5 mg tablet (Eliquis) 2.5 mg PO BID Blood clot prevention/tx #60 tabs 05/08/23
ascorbic acid (vitamin C) 500 mg tablet (Vitamin C) 500 mg PO DAILY@1200 Supplement #0 tabs 05/08/23
bumetanide 1 mg tablet 1 mg PO BID Fluid retention/Swelling #60 tabs 05/08/23
cholecalciferol (vitamin D3) 25 mcg (1,000 unit) tablet (Vitamin D3) 25 mcg PO DAILY@1200 Supplement #0 tabs 05/08/23
digoxin 125 mcg (0.125 mg) tablet 125 mcg PO DAILY Arrhythmia #30 tabs 05/08/23
levothyroxine 150 mcg tablet 150 mcg PO DAILY Thyroid #0 tabs 05/08/23
magnesium oxide 500 mg PO DAILY Supplement #0 tabs 05/08/23
metoprolol succinate 25 mg tablet,extended release 24 hr 75 mg PO BID Arrhythmia #120 tabs 05/08/23
multivitamin 1 tab PO DAILY@1200 Supplement #0 tabs 05/08/23
potassium chloride 20 mEq tablet,extended release(part/cryst) 20 meq PO DAILY@1200 Electrolyte Repletion #0 tabs 05/08/23
Home Medication Changes
Digoxin, magnesium, new
Cardizem stopped
Dose change-Bumex, metoprolol, Eliquis
Pending Results: No
--- NOTE | 2023-05-08 11:10 | PN.CDI ---
Addendum entered and electronically signed by Maylin Gong MD 05/09/23 07:47:
Afib is more than 7 days and the plan is to do an ablation as OP at some point per D/W Cards
No change in my documentation
Original Note:
CDI
- -
CDI:
Physician Documentation Request
Admit Date: 05/02/23 20:16
Dear Doctor Farideh,
Patient presented with dizziness. Pt noted to have atrial fibrillation.
05/07 hospitalist progress note refers to the atrial fib as persistent.
05/07 cardiology note refers to the afib as permanent.
If possible, please provide further specificity regarding atrial fibrillation, such as:
Persistent atrial fibrillation - episodes of continuous AF that last more than 7 days and do not self-terminate
Permanent atrial fibrillation - when a decision has been made to accept the presence of AF and there is no further attempt to restore or maintain sinus rhythm
Other - please specify
Use of terms such as suspected, likely, concern for, or probable (associated with a specific diagnosis that is being evaluated, monitored, or treated as if it exists) are acceptable and can be coded in the inpatient setting, when documented at the
time of discharge.
Thank you,
Chacha Evans RN, BSN
CDI Specialist
tiger text
Please use your independent medical judgment in providing your response.
--- NOTE | 2023-05-08 11:12 | CM ---
CM following for DC planning needs.
Reviewed plan; Pt. for DC today to home w/ [facility].
[2023-05-08] MEDS: VITAMIN D3 (cholecalciferol) 25 MCG PO (12:30)
[2023-05-08] MEDS: VITAMIN C 500 MG PO (12:30)
[2023-05-08] MEDS: LANOXIN 250 MCG PO (12:30)
[2023-05-08] MEDS: THERAGRAN 1 TABLET PO (12:30)
[2023-05-08] MEDS: KCL PO (12:31)
--- NOTE | 2023-05-08 14:38 | PTCARENOTE ---
Pt discharged to w/daughter providing transportation. Discussed extensively medication instructions on D/C w/pt & daughter. Pt repeatedly expressed her 'disappointment that she wasn't told about having to take more Bumex, more often before
getting her new pacemaker'. This RN explained to pt & pt's daughter the purpose of the Bumex & spent an addtl 60 mins going over the CHF book & chf teaching. Pt D/C'd back to [facility] w/belongings incl cell phone & clothing.
== END 2023-05-08 14:47 | disposition home health service (06) | DRG 242 ==
LOC: IVU 20:16
PROVIDERS: Internal Medicine Cardiovascular Disease; Nurse Practitioner; ADMITTING PHYSICIAN Hospitalist; ATTENDING PHYSICIAN Hospitalist; EMERGENCY PHYSICIAN Emergency Medicine; FAMILY PHYSICIAN Internal Medicine; OTHER PHYSICIAN Internal Medicine Cardiovascular Disease
PROC: 02HK3JZ Insertion of Pacemaker Lead into Right Ventricle, Percutaneous Approach (ICD-10-PCS; 2023-05-06)
PROC: 02HL3JZ Insertion of Pacemaker Lead into Left Ventricle, Percutaneous Approach (ICD-10-PCS; 2023-05-06)
PROC: 0JH607Z Insertion of Cardiac Resynchronization Pacemaker Pulse Generator into Chest Subcutaneous Tissue and Fascia, Open Approach (ICD-10-PCS; 2023-05-06)
DX: I49.5 Sick sinus syndrome (principal); I50.23 Acute on chronic systolic (congestive) heart failure; E87.1 Hypo-osmolality and hyponatremia; I47.20 Ventricular tachycardia, unspecified; Q21.12 Patent foramen ovale; N17.9 Acute kidney failure, unspecified; I48.19 Other persistent atrial fibrillation; I11.0 Hypertensive heart disease with heart failure; I42.8 Other cardiomyopathies; F41.0 Panic disorder [episodic paroxysmal anxiety]; I25.10 Atherosclerotic heart disease of native coronary artery without angina pectoris; E03.9 Hypothyroidism, unspecified; E78.00 Pure hypercholesterolemia, unspecified; I08.1 Rheumatic disorders of both mitral and tricuspid valves; R91.1 Solitary pulmonary nodule; D64.9 Anemia, unspecified; M81.0 Age-related osteoporosis without current pathological fracture; J45.909 Unspecified asthma, uncomplicated; G47.00 Insomnia, unspecified; M48.00 Spinal stenosis, site unspecified; K21.9 Gastro-esophageal reflux disease without esophagitis; K76.1 Chronic passive congestion of liver; E78.5 Hyperlipidemia, unspecified; K80.20 Calculus of gallbladder without cholecystitis without obstruction; I27.20 Pulmonary hypertension, unspecified; G44.009 Cluster headache syndrome, unspecified, not intractable; Z87.891 Personal history of nicotine dependence; Z90.710 Acquired absence of both cervix and uterus; Z79.01 Long term (current) use of anticoagulants; Z79.890 Hormone replacement therapy; Z86.718 Personal history of other venous thrombosis and embolism; Z88.2 Allergy status to sulfonamides; Z91.018 Allergy to other foods; Z91.048 Other nonmedicinal substance allergy status
CPT/HCPCS: 33207; 33208; 33225; 71045; 71046; 76700; 80048; 80053; 83735; 83880; 84484; 85025; 85027; 85610; 93005; 93306; 97162; 97166; 97535; 99285; C1769; C1887; C1892; C1898; C1900; C2621; J1160; Q9967

== ENCOUNTER → 2023-05-13 11:30 | Outpatient (REF) | payer MEDICARE, SELFPAY ==
[2023-05-13 19:38] LABS: % Basophils 0.9 % (0-2); % Eosinophils 2.1 % (0-6); % Immature Granulocytes 0.2 % (0-0.5); % Lymphocytes 9.9 % (20.5-51.1); % Monocytes 11.8 % (1.7-9.3); % Neutrophils 75.1 % (42.2-75.2); Absolute Basophils 0.1 10^3/uL (0-0.2); Absolute Eosinophils 0.1 10^3/uL (0-0.7); Absolute Lymphocytes 0.6 10^3/uL (1.2-3.4); Absolute Monocytes 0.7 10^3/uL (0.1-0.6); Absolute Neutrophils 4.4 10^3/uL (1.4-6.5); Hematocrit 41.6 % (37.0-47.0); Hemoglobin 13.5 g/dL (12.0-16.0); Mean Corp Hgb Conc. 32.5 g/dL (33.0-37.0); Mean Corpuscular Hgb 29.9 pg (27.0-31.0); Mean Corpuscular Volume 92.2 fL (81.0-99.0); Mean Platelet Volume 12.1 fL (7.4-10.4); Nucleated Red Blood Cells % 0 %; Platelet Count 193 10^3/uL (130-400); Red Blood Cell Count 4.51 10^6/uL (4.20-5.40); Red Cell Dist. Width 18.1 % (11.5-14.5); White Blood Cell Count 5.8 10^3/uL (4.8-10.8)
[2023-05-13 19:44] LABS: ALT (SGPT) 31 U/L (0-35); AST (SGOT) 47 U/L (14-36); Alkaline Phosphatase 75 U/L (38-126); Blood Urea Nitrogen 17 mg/dl (7-17); Calcium 9.2 mg/dl (8.4-10.2); Carbon Dioxide 34 mmol/L (22-30); Chloride 97 mmol/L (98-107); Glucose 72 mg/dl (70-99); Potassium 3.8 mmol/L (3.5-5.1); Sodium 137 mmol/L (135-145); Total Bilirubin 1.1 mg/dl (0.2-1.3); Total Protein 7.2 g/dl (6.3-8.2); eGFR > 60.00
== END ==
LOC: CLAB 11:30
PROVIDERS: ATTENDING PHYSICIAN Internal Medicine
DX: I10 Essential (primary) hypertension (principal); I48.19 Other persistent atrial fibrillation; E03.9 Hypothyroidism, unspecified
CPT/HCPCS: 36415; 80053; 80162; 85025

== ENCOUNTER 2023-09-03 05:53 | Day surgery (SDC) | payer MEDICARE, SELFPAY ==
[2023-09-03] VITALS (10 sets, daily range): BP systolic 101–174; BP diastolic 49–92; BMI 19.9
--- NOTE | 2023-09-03 09:19 | ITS.CL.ABL ---
[employer] - Ablation
Ablation
Procedure Report:
Atrio-Ventricular Junction Ablation:
Ms. 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
40% from 60% in 12/2022 has gone into permanent atrial fibrillation with ablate and pace strategy has undergone [employer]PERVISOR-P on 05/06/2023. She is recommended for AV node ablation for control of her atrial fibrillation rapid ventricular response.
Date of the Procedure:
09/03/2023
Indications:
Permanent atrial fibrillation and rapid ventricular response
Pre-Operative Diagnosis:
Permanent atrial fibrillation and rapid ventricular response
Post-Operative Diagnosis:
Permanent atrial fibrillation and rapid ventricular response
Procedure Performed:
AVJ / AV arleen ablation
Performing Physician:
Jos Fleming MD
Anesthesia:
See anesthesia records
Detailed Description of the Procedure:
Written informed consent was obtained from the patient after a full explanation of the risks and benefits of the procedure including the risks of sedation and anesthesia. The patient was brought to the electrophysiology laboratory in stable
condition in fasting state. Continuous electrocardiographic and hemodynamic monitoring was initiated.
The initial rhythm was atrial fibrillation.
The procedure site was meticulously prepared with surgical scrub and allowed to dry with no pooling. Sterile draping was applied to cover the procedure site. The image intensifier was draped with sterile bag and positioned over the patient.
Device interrogation and modifications:
The device was interrogated. The tachy therapies were suspended. The PPM was switched to VVI 60 bpm.
The device remained like this throughout the entire procedure and was turned back to usual setting at the end of the case.
Sheath and Catheter Placement:
After infusion of local anesthetic, vascular access was obtained under ultrasound guidance and sheaths were placed over guide wire as detailed below.
Sheaths:
��������������� - 8 Fr sheath upgraded to 8.5Fr SL1 sheath in right femoral vein
Catheters:
��������������� - Saphire 4 mm ablation catheter
Following the sheath placement, EP study was done to identify the His location.� Patient is on the chronic anticoagulation.
The EP study showed atrial fibrillation and His location was identified. RV lead was pacing adequately with AF with AV arleen conduction noted.
AV arleen ablation:
Cardiac anatomy as established. HIS cloud was established. The triangle of Mcclelland was marked with ablation catheter.
Using Sapphire catheter (4mm -non-irrigated radiofrequency ablation catheter), the catheter was placed at the His locations and using 50watts of energy at 50degree temperature, the AV node was ablated for <60 seconds. The atrial fibrillation with AV
conduction stopped and patient was paced via the BiV pacing lead. Further a couple of consolidation lesions were applied around that area.
Patient was observed for 15-20 minutes with no sign of AV node recovery.
Post Ablation EP study:
The EP study was done via the device and atrial fibrillation noted at the atrium and RV pacing with no AV conduction.
The device was reprogrammed to its initial settings. Patient was noted to be RV paced without any irregular heartbeat.
Procedure End
Following the completion of the procedure, the catheter was removed. The sheaths were removed and hemostasis achieved manual compression.
Recommendations:
��������������� Continue home medications
Estimated Blood loss:
<5 cc
Specimens Removed:
None.
Implants / Devices:
None
Urine output:
None
Packs / Drains/ Tubes:
None
Instrument / Sponge Count Correct:
Yes�
Complications of the Procedure:
None
Condition of Patient at Time of Transfer:
Hemodynamically stable with no neurological or vascular compromise.
Summary:
Successful AV arleen ablation
[2023-09-03] MEDS: TYLENOL 650 MG PO (09:58)
== END 2023-09-03 13:00 | disposition home or self-care (01) ==
LOC: CATH 05:53
PROVIDERS: ATTENDING PHYSICIAN Internal Medicine Cardiovascular Disease; FAMILY PHYSICIAN Internal Medicine; OTHER PHYSICIAN Internal Medicine Cardiovascular Disease
DX: I48.21 Permanent atrial fibrillation (principal); I49.5 Sick sinus syndrome; Z95.0 Presence of cardiac pacemaker; I10 Essential (primary) hypertension; K90.0 Celiac disease; I34.0 Nonrheumatic mitral (valve) insufficiency; Z85.828 Personal history of other malignant neoplasm of skin; Z87.891 Personal history of nicotine dependence; Z79.01 Long term (current) use of anticoagulants
CPT/HCPCS: C1733; C1894; 76937; 93005; 93650

== ENCOUNTER → 2023-11-19 09:57 | Outpatient (REF) | payer MEDICARE, SELFPAY | LOC: HWWDC 09:57 | PROVIDERS: ATTENDING PHYSICIAN Internal Medicine | DX: Z12.31 Encounter for screening mammogram for malignant neoplasm of breast (principal) | CPT/HCPCS: 77063; 77067 ==

== ENCOUNTER → 2024-01-07 11:03 | Outpatient (REF) | payer MEDICARE, SELFPAY | LOC: HWRCS 11:03 | PROVIDERS: ATTENDING PHYSICIAN Nurse Practitioner; FAMILY PHYSICIAN Internal Medicine | DX: I48.0 Paroxysmal atrial fibrillation (principal); I49.5 Sick sinus syndrome; Z95.0 Presence of cardiac pacemaker; I34.0 Nonrheumatic mitral (valve) insufficiency; I50.20 Unspecified systolic (congestive) heart failure | CPT/HCPCS: 93306 ==

== ENCOUNTER → 2024-03-02 13:36 | Outpatient (REF) | payer MEDICARE, SELFPAY | LOC: RAD 13:36 | PROVIDERS: ATTENDING PHYSICIAN Surgery Vascular Surgery; FAMILY PHYSICIAN Internal Medicine | DX: K55.069 Acute infarction of intestine, part and extent unspecified (principal) | CPT/HCPCS: 74174; Q9967 ==

== ENCOUNTER → 2024-08-14 14:23 | Outpatient (REF) | payer MEDICARE, SELFPAY | LOC: RCS 14:23 | PROVIDERS: ATTENDING PHYSICIAN Student in an Organized Health Care Education/Training Program; FAMILY PHYSICIAN Internal Medicine | DX: I50.22 Chronic systolic (congestive) heart failure (principal) | CPT/HCPCS: 93306 ==

== ENCOUNTER 2024-09-02 23:30 | Emergency (ER) | payer MEDICARE, SELFPAY ==
[2024-09-02 23:35] VITALS: BP 175/69
[2024-09-02 23:45] VITALS: BMI 21.4
[2024-09-03] VITALS (13 sets, daily range): BP systolic 140–193; BP diastolic 54–82; PULSE 65–74
[2024-09-03] MEDS: OFIRMEV 100 IV (03:23)
--- NOTE | 2024-09-03 03:25 | ED.GENMED ---
History of Present Illness
General
Chief Complaint: Blood Pressure Problem
Source: patient, family (Daughter at bedside) and previous hospital records
Exam Limitations: none
Time Seen by Provider: 09/03/24 02:21
Nursing documentation reviewed up to this point in time: agreed with
History of Present Illness
History of Present Illness:
This is an 88-year-old woman with history of atrial fibrillation, tachybradycardia syndrome, pacemaker. Prior history of A-fib ablation as well as AV arleen ablation August 2023. She has history of ischemic colitis 2022, chronically maintained on
Eliquis, history of labile hypertension, anxiety, chronic abdominal pain/irritable bowel syndrome, celiac disease, hypothyroidism.
Patient admits to significant ongoing stress over the past few years with multiple chronic ongoing medical conditions including macular degeneration, glaucoma, chronic dry eye, chronic abdominal discomfort with chronic loose stools. She is also
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
Although reported history of labile hypertension. Patient states her blood pressure which she monitors twice per week is generally fairly well-controlled with systolic ranging 120s to 140s.
She has been following with a new per diem rn over the past several months, metoprolol dose decreased from 75 mg twice daily to 25 mg twice daily and valsartan 40 mg twice daily was added several months ago.
Tonight she developed a generalized frontal headache which she described initially as a pressure, ache which seemed to worsen when she attempted to stand up and she began to feel shaky, lightheaded, nauseous. She admits to becoming quite upset,
anxious and with anxiety then passed a few loose stools which she states is frequent side effect of her anxiety.
She checked her blood pressure and was concerned when it was elevated with systolic of 180 and then upon recheck systolic of 202. With markedly elevated blood pressure and overall not feeling well she called 911.
Currently feeling improved with improvement but not resolution of headache. She denies neck nor back pain, no chest pain, no palpitations, no shortness of breath or cough. She has not had a fever.
She does note some chronic sinus congestion but no rhinorrhea, no sneezing.
She follows regularly with ophthalmology and underwent injections to her eyes just 2 days ago. Similar injections to her eyes every 12 weeks.
She has history of occasional headaches but overall rare in occurrence. No prior history of vertigo. No prior history of stroke.
She denies weakness nor numbness, no difficulty with ambulation but admits to feeling somewhat shaky with ambulation.
She did not take anything for her symptoms. Currently improved but have not resolved.
Past History
Past History
ED Past Medical History: Arrthythmia (Paroxysmal atrial fibrillation/A. flutter), Asthma, HTN, Hypercholesterolemia, Hypothyroidism, Psychiatric, Other (C. difficile colitis, admitted February 2010, celiac disease, osteoporosis) and Other
(Mesenteric artery thrombosis)
ED Past Surgical History: Appendectomy, Gynecological (Hysterectomy) and Orthopedic (Surgery)
Social History
Tobacco: Former smoker
Alcohol: Occasional
Drug: None
Personal:
Living: with family
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
Family History
Family History: CAD and Cancer
Phy Exam
Physical Exam
Physical Exam:
GENERAL: 88-year-old woman appears her stated age, awake and alert, mildly anxious but easily communicative and overall in no acute distress. Daughter is accompanying.
EYE: pupils equal and reactive. Extraocular muscles intact. Anicteric
NECK: Supple, nontender, no meningismus, no significant adenopathy.
ENT: posterior pharynx is clear, oral mucosa is moist. TM clear b/l, nares patent.
CARDIAC: Regular rate and rhythm. no murmur.
LUNGS: Clear breath sounds bilaterally, no acute respiratory distress, no wheezes/rales/rhonchi
ABDOMEN: Soft, nondistended, without focal tenderness, no r/g, no cvat. normoactive BS.
NEUROLOGICAL: Alert and oriented x3, no focal neuro deficits. Gait is steady.
SKIN: Warm and dry, normal color, skin intact. No rash.
MUSCULOSKELETAL: No C/C/E. peripheral pulses are full and equal b/l. No palpable tenderness.
PSYCH: Mildly anxious.
Course
Orders/Labs/Results
Orders:
Orders
09/03/24 02:50
Orthostatic VS- Treatment ONCE
09/03/24 02:51
CT Head W/o Iv Contrast Urgent
Comment:
Reason For Exam: acute headache tonight, HTN
09/03/24 02:53
Electrocardiogram (*1) Urgent
Reason for Study: Atrial Fibrillation
EKG- Treatment ONCE
09/03/24 02:54
Acetaminophen 1000MG/100Ml [Ofirmev] 1,000 mg in 100 ml IV ONCE
Acetaminophen IV Indication:: ED Narcotic Naive Pt-ONCE
09/03/24 03:12
Complete Blood Count/With Diff Urgent
Comprehensive Metabolic Panel Urgent
Lactic Acid Urgent
Lipase Urgent
09/03/24 05:00
Meclizine [Antivert] 25 mg PO NOW STA
Abnormal Lab Results
09/03/24
03:12
MCH 32.4 H pg
(27.0-31.0)
MPV 10.9 H fL
(7.4-10.4)
Absolute Neuts (auto) 6.9 H 10^3/uL
(1.4-6.5)
Absolute Lymphs (auto) 1.1 L 10^3/uL
(1.2-3.4)
Absolute Monos (auto) 0.8 H 10^3/uL
(0.1-0.6)
Neutrophils % 78.0 H %
(42.2-75.2)
Lymphocytes % 11.9 L %
(20.5-51.1)
BUN 23 H mg/dl
(7-17)
Glucose 103 H mg/dl
(70-99)
Lactic Acid 2.1 H mmol/L
(0.7-2.0)
09/03/24 03:12
09/03/24 03:12
Vital Signs
Initial and Last Documented VS:
Initial Vital Signs
Temp Pulse Resp BP Pulse Ox
97.7 F 84 22 175/69 98
09/02/24 23:35 09/02/24 23:35 09/02/24 23:35 09/02/24 23:35 09/02/24 23:35
Last Documented Vital Signs
Temp Pulse Resp BP Pulse Ox
97.7 F 60 13 159/71 94
09/02/24 23:35 09/03/24 05:45 09/03/24 05:45 09/03/24 05:00 09/03/24 05:45
MDM/Problems Addressed
Differential Diagnosis Includes:
Patient presents with headache, shakiness, nausea that appears somewhat worsened with movement, worse with standing.
Concern for vertigo, CVA, malignant hypertension, orthostasis, arrhythmia.
No focal neurologic deficit on exam.
Noted to be moderately hypertensive, improving to 175/69.
Will check orthostatic vital signs, labs, EKG and CT of the head. Will trial a dose of Tylenol for headache.
Chronic conditions affecting care: HTN, Arrhythmia, Psychiatric illness and Cancer ( Reported skin cancer of scalp)
*Radiology
Radiology exam reviewed: radiology read reviewed (CT of the head is unremarkable.)
*Pulse Oximetry
Patient hypoxic: no (98% room air)
Comment: 98% on room air
*EKG
Interpreted by ED Provider?: Yes
Interpretation: normal
Comparison EKG: no changes (Unchanged from previous August 2023)
Rate: normal
Rhythm: ventricular paced (Ventricular paced rhythm at a rate of 77. Similar and unchanged from previous August 2023.)
*First Dyer Interpretation
Rate: normal
Interpretation: normal
Rhythm: ventricular paced
*Critical Care Note
Total Time (30-74mins, 75-104mins- exclusive of procedures): Not Applicable
Update Note
Update Note:
Patient feeling improved. No further head pressure/headache. Blood pressures improved to 140 systolic.
She has ambulated to and from the bathroom with steady unaided gait. She does note some continued unsteadiness, feeling off balance when she stands and ambulates but no dysmetria nor unsteady gait noted.
Orthostatic vital signs are negative.
CT of the head is unremarkable.
Labs essentially unremarkable. Lactic acid borderline elevated at 2.1. No further abdominal discomfort and abdomen is soft without appreciable tenderness.
Will trial oral fluids and a dose of Antivert.
06:20
Patient feeling improved.
Again has ambulated to the bathroom with steady unaided gait. Admits to feeling mildly shaky but no further complaints of unsteadiness and believes her shakiness is cold environment related. No evidence of tremor. She remains afebrile.
Will discharge to home with recommendation for follow-up with her per diem rn as well as PCP.
Recommend as needed Antivert for dizziness
ED Attending Note
-
Portions of this chart may have been created with voice recognition software.� Occasional wrong word or��sound alike� substitutions may have occurred due to the inherent limitations of voice recognition software.
Discharge Plan
Departure
Patient Disposition: Home (Routine Discharge)
Date of Disposition: 09/03/24
Time of Disposition: 06:26
Patient with high blood pressure during this ER visit?: No
Condition: Good
Discharge Problem:
Accelerated essential hypertension, Dizziness
Instructions: Vertigo (a type of dizziness), High blood pressure in adults
Prescriptions:
No Action
pravastatin 20 MG tablet
20 mg PO QPM
ibandronate 150 mg Tablet
150 mg PO QMONTH
alprazolam [Xanax] 0.5 mg tablet
0.5 mg PO HS PRN (Reason: anxiety/sleep)
Patient Comments:
05/02/2023: last filled 03/29/23, 30 tabs for 30 days from [facility]
Eliquis 5 mg Tablet
2.5 mg PO BID Qty: 60 0RF
magnesium oxide 500 mg magnesium Tablet
500 mg PO DAILY Qty: 0 0RF
metoprolol succinate 25 mg Tablet Extended Release 24 Hr
75 mg PO BID Qty: 120 0RF
multivitamin Tablet
1 tab PO DAILY@1200 Qty: 0 0RF
potassium chloride 20 mEq tablet,ER particles/crystals
20 meq PO DAILY@1200 Qty: 0 0RF
ascorbic acid (vitamin C) [Vitamin C] 500 mg Tablet
500 mg PO DAILY@1200 Qty: 0 0RF
levothyroxine 150 mcg tablet
150 mcg PO DAILY Qty: 0 0RF
cholecalciferol (vitamin D3) [Vitamin D3] 25 mcg (1,000 unit) Tablet
25 mcg PO DAILY@1200 Qty: 0 0RF
mirtazapine 15 mg Tablet
15 mg PO HS
bumetanide 1 mg tablet
0.5 mg PO DAILY
Referrals:
Otf Steen MD [Family Provider, Internal Medicine] - Call in 1-3 days for appt
Interventions
Interventions:
*Risk Screen - Suicide Last Done: 09/02/24 23:35
*General Assessment Last Done: 09/02/24 23:35
*Neglect/Abuse Screening Last Done: 09/02/24 23:35
*ED- Fall Risk Assessment Last Done: 09/02/24 23:45
*ED COVID-19 Vaccine History Last Done: 09/02/24 23:45
ED- Cardiac Assessment Last Done: 09/02/24 23:45
ED- Neurological Assessment Last Done: 09/02/24 23:45
ED- Pulmonary Assessment Last Done: 09/02/24 23:45
Discharge Date and Time
Print Language: PORTUGUESE
[2024-09-03 03:29] LABS: % Basophils 0.5 % (0-2); % Eosinophils 0.3 % (0-6); % Immature Granulocytes 0.2 % (0-0.5); % Lymphocytes 11.9 % (20.5-51.1); % Monocytes 9.1 % (1.7-9.3); Absolute Lymphocytes 1.1 10^3/uL (1.2-3.4); Absolute Monocytes 0.8 10^3/uL (0.1-0.6); Absolute Neutrophils 6.9 10^3/uL (1.4-6.5); Hematocrit 38.8 % (37.0-47.0); Hemoglobin 13.7 g/dL (12.0-16.0); Mean Corp Hgb Conc. 35.3 g/dL (33.0-37.0); Mean Corpuscular Hgb 32.4 pg (27.0-31.0); Mean Corpuscular Volume 91.7 fL (81.0-99.0); Mean Platelet Volume 10.9 fL (7.4-10.4); Nucleated Red Blood Cells % 0 %; Platelet Count 196 10^3/uL (130-400); Red Blood Cell Count 4.23 10^6/uL (4.20-5.40); Red Cell Dist. Width 13.2 % (11.5-14.5); White Blood Cell Count 8.8 10^3/uL (4.8-10.8)
[2024-09-03 03:59] LABS: ALT (SGPT) 28 U/L (0-35); AST (SGOT) 35 U/L (14-36); Albumin 4.2 g/dl (3.5-5.0); Alkaline Phosphatase 77 U/L (38-126); Blood Urea Nitrogen 23 mg/dl (7-17); Calcium 9.8 mg/dl (8.4-10.2); Carbon Dioxide 24 mmol/L (22-30); Chloride 107 mmol/L (98-107); Estimated Creatinine Clearance 43 ml/min; Glucose 103 mg/dl (70-99); Lipase 126 U/L (23-300); Potassium 4.2 mmol/L (3.5-5.1); Sodium 140 mmol/L (135-145); Total Bilirubin 1.3 mg/dl (0.2-1.3); Total Protein 7.2 g/dl (6.3-8.2); eGFR > 60.00
[2024-09-03 04:00] LABS: Lactic Acid 2.1 mmol/L (0.7-2.0)
[2024-09-03] MEDS: ANTIVERT 25 MG PO (05:07)
== END 2024-09-03 06:42 | disposition home or self-care (01) ==
LOC: EMR 23:30
PROVIDERS: EMERGENCY PHYSICIAN Emergency Medicine; FAMILY PHYSICIAN Internal Medicine
DX: I10 Essential (primary) hypertension (principal); R42 Dizziness and giddiness; R51.9 Headache, unspecified; I48.0 Paroxysmal atrial fibrillation; E03.9 Hypothyroidism, unspecified; E78.00 Pure hypercholesterolemia, unspecified; J45.909 Unspecified asthma, uncomplicated; Z79.01 Long term (current) use of anticoagulants; Z87.891 Personal history of nicotine dependence; Z95.0 Presence of cardiac pacemaker
CPT/HCPCS: 99284; 96374; 70450; 80053; 83605; 83690; 85025; 93005

== ENCOUNTER → 2024-11-05 09:28 | Outpatient (REF) | payer MEDICARE, SELFPAY ==
[2024-11-05 10:55] LABS: HDL Cholesterol 59 mg/dl; LDL Cholesterol, Calculated 89 mg/dl; Very Low Density Lipoprotein 10 mg/dl (0-30)
== END ==
LOC: OLABMERCHI 09:28
PROVIDERS: ATTENDING PHYSICIAN Student in an Organized Health Care Education/Training Program; FAMILY PHYSICIAN Internal Medicine
DX: E78.5 Hyperlipidemia, unspecified (principal)
CPT/HCPCS: 36415; 80061

== ENCOUNTER → 2024-11-19 10:35 | Outpatient (REF) | payer MEDICARE, SELFPAY ==
[2024-11-19 10:54] LABS: Hematocrit 37.4 % (37.0-47.0); Hemoglobin 12.1 g/dL (12.0-16.0); Mean Corp Hgb Conc. 32.4 g/dL (33.0-37.0); Mean Corpuscular Volume 96.1 fL (81.0-99.0); Nucleated Red Blood Cells % 0 %; Platelet Count 182 10^3/uL (130-400); Red Cell Dist. Width 13.6 % (11.5-14.5)
[2024-11-19 10:58] LABS: ALT (SGPT) 31 U/L (0-35); AST (SGOT) 33 U/L (14-36); Albumin 3.8 g/dl (3.5-5.0); Alkaline Phosphatase 65 U/L (38-126); Blood Urea Nitrogen 31 mg/dl (7-17); Calcium 9.2 mg/dl (8.4-10.2); Carbon Dioxide 30 mmol/L (22-30); Chloride 106 mmol/L (98-107); Glucose 80 mg/dl (70-99); HDL Cholesterol 55 mg/dl; LDL Cholesterol, Calculated 83 mg/dl; Potassium 4.9 mmol/L (3.5-5.1); Sodium 139 mmol/L (135-145); Total Protein 6.5 g/dl (6.3-8.2); Very Low Density Lipoprotein 7 mg/dl (0-30); eGFR > 60.00
[2024-11-19 11:35] LABS: TSH 0.80 uIU/ml (0.47-4.68)
== END ==
LOC: OLABMERCHI 10:35
PROVIDERS: ATTENDING PHYSICIAN Internal Medicine
DX: E78.5 Hyperlipidemia, unspecified (principal); I10 Essential (primary) hypertension; D50.0 Iron deficiency anemia secondary to blood loss (chronic); I48.0 Paroxysmal atrial fibrillation; E03.9 Hypothyroidism, unspecified; K90.0 Celiac disease
CPT/HCPCS: 36415; 80053; 80061; 84439; 84443; 85025

== ENCOUNTER → 2024-11-24 12:59 | Outpatient (REF) | payer MEDICARE, SELFPAY | LOC: WDC 12:59 | PROVIDERS: ATTENDING PHYSICIAN Obstetrics & Gynecology Gynecology; FAMILY PHYSICIAN Internal Medicine | DX: Z12.31 Encounter for screening mammogram for malignant neoplasm of breast (principal) | CPT/HCPCS: 77063; 77067 ==

== ENCOUNTER 2025-01-22 20:49 | Emergency (ER) | payer MEDICARE, SELFPAY ==
[2025-01-22 20:52] VITALS: BP 154/96
--- NOTE | 2025-01-22 22:34 | ED.GENMED ---
History of Present Illness
General
Chief Complaint: Post Operative Problem(s)
Source: patient and family
Exam Limitations: none
Time Seen by Provider: 01/22/25 22:09
Nursing documentation reviewed up to this point in time: agreed with
History of Present Illness
History of Present Illness:
89-year-old female with history as noted presents for evaluation of bleeding from surgical incision. Patient had Mohs procedure at [place] yesterday on her scalp. She says she has had intermittent bleeding since then including soaking through
her dressing today. Came to the ER for evaluation. She is on Eliquis for A-fib. She denies any other acute complaints.
Past History
Past History
ED Past Medical History: Arrthythmia (Paroxysmal atrial fibrillation/A. flutter), Asthma, HTN, Hypercholesterolemia, Hypothyroidism, Psychiatric, Other (C. difficile colitis, admitted February 2010, celiac disease, osteoporosis) and Other
(Mesenteric artery thrombosis)
ED Past Surgical History: Appendectomy, Gynecological (Hysterectomy) and Orthopedic (Surgery)
Social History
Tobacco: Former smoker
Alcohol: Occasional
Drug: None
Personal:
Living: with family
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
Family History
Family History: CAD and Cancer
Review of Systems
Review of Systems
All Other Systems: ROS reviewed and negative except as documented in HPI and ROS
Skin: Reports other (Bleeding from surgical incision)
Phy Exam
Physical Exam
Physical Exam:
General: Well appearing and non-toxic
HEENT: protecting airway; she has a large bloodsoaked dressing on the scalp�on removal of the dressing she has a large surgical incision with sutures in place and intact and small oozing of blood from the margin near the apex of the scalp
Neck: appears supple
CV: No evidence of cyanosis
Resp: No accessory muscle use
Abd: Non-distended
Extremities: No deformities
Neuro: Alert
Psych: Normal affect
Skin: Intact
Scores
Heart Failure Risk
Heart Failure Risk Score: Not Applicable
Heart Score for Chest Pain Patients
STEMI patient?: Not applicable
Withdrawal Assessment of Alcohol
Withdrawal Assessment Completed?: Not applicable
Course
Vital Signs
Initial and Last Documented VS:
Initial Vital Signs
Temp Pulse Resp BP Pulse Ox
36.8 C 99 18 154/96 97
01/22/25 20:52 01/22/25 20:52 01/22/25 20:52 01/22/25 20:52 01/22/25 20:52
Last Documented Vital Signs
Temp Pulse Resp BP Pulse Ox
36.8 C 99 18 154/96 97
01/22/25 20:52 01/22/25 20:52 01/22/25 20:52 01/22/25 20:52 01/22/25 22:35
MDM/Problems Addressed
Differential Diagnosis Includes:
Post operative bleeding
MDM/Problems Addressed:
89-year-old female who is on Eliquis for A-fib presents with bleeding from surgical incision on her scalp after a Mohs procedure. Vitals and exam as above. She has oozing from the margin of the incision but sutures remain intact. Bleeding
controlled with direct pressure and Surgicel gauze. Pressure dressing reapplied. Stable for discharge, visiting nurse visit over the next 24 to 48 hours for further wound care. All questions answered.
Chronic conditions affecting care:
A-fib on Eliquis increases bleeding risk postoperatively
*Pulse Oximetry
SaO2: 97
Oxygen Mode of Delivery: Room air
Patient hypoxic: no (97%)
*Critical Care Note
Total Time (30-74mins, 75-104mins- exclusive of procedures): Not Applicable
Data Reviewed
Source: patient and family
ED Attending Note
-
Portions of this chart may have been created with voice recognition software.� Occasional wrong word or��sound alike� substitutions may have occurred due to the inherent limitations of voice recognition software.
Discharge Plan
Departure
Patient Disposition: Home (Routine Discharge)
Date of Disposition: 01/22/25
Time of Disposition: 23:34
Patient with high blood pressure during this ER visit?: Yes
Discharge Problem:
Post-op bleeding
Instructions: Bleeding After Surgery
Prescriptions:
No Action
pravastatin 20 MG tablet
20 mg PO QPM
ibandronate 150 mg Tablet
150 mg PO QMONTH
alprazolam [Xanax] 0.5 mg tablet
0.5 mg PO HS PRN (Reason: anxiety/sleep)
Patient Comments:
05/02/2023: last filled 03/29/23, 30 tabs for 30 days from [facility]
Eliquis 5 mg Tablet
2.5 mg PO BID Qty: 60 0RF
magnesium oxide 500 mg magnesium Tablet
500 mg PO DAILY Qty: 0 0RF
metoprolol succinate 25 mg Tablet Extended Release 24 Hr
75 mg PO BID Qty: 120 0RF
multivitamin Tablet
1 tab PO DAILY@1200 Qty: 0 0RF
potassium chloride 20 mEq tablet,ER particles/crystals
20 meq PO DAILY@1200 Qty: 0 0RF
ascorbic acid (vitamin C) [Vitamin C] 500 mg Tablet
500 mg PO DAILY@1200 Qty: 0 0RF
levothyroxine 150 mcg tablet
150 mcg PO DAILY Qty: 0 0RF
cholecalciferol (vitamin D3) [Vitamin D3] 25 mcg (1,000 unit) Tablet
25 mcg PO DAILY@1200 Qty: 0 0RF
mirtazapine 15 mg Tablet
15 mg PO HS
bumetanide 1 mg tablet
0.5 mg PO DAILY
Referrals:
Otf Steen MD [Family Provider, Internal Medicine]
Activity Restrictions/Additional Instructions:
Thank you for visiting the Emergency Department at [facility].
1. Please schedule a follow up appointment as directed. Call first thing tomorrow morning to make an appointment.
2. If indicated, please take your medications as instructed and indicated on discharge paperwork.
3. If any of your symptoms do not improve, or persist, or become more severe within 6-12 hours, please return to the emergency department for further care.
4. Please return to the emergency department if you develop a headache, neck pain/stiffness, fever greater than 100.4F, chest pain, shortness of breath, persistent nausea, vomiting, slurred speech, difficulty walking, numbness/tingling, weakness,
signs of infection or any other symptoms that are worrisome to you.
Please call [phone] if you have any questions.
Interventions
Interventions:
*Risk Screen - Suicide Last Done: 01/22/25 20:52
*General Assessment Last Done: 01/22/25 20:52
*Neglect/Abuse Screening Last Done: 01/22/25 20:52
Discharge Date and Time
Print Language: [place]
[2025-01-22 23:39] VITALS: BP 150/62
== END 2025-01-22 23:44 | disposition home or self-care (01) ==
LOC: EMR 20:49
PROVIDERS: EMERGENCY PHYSICIAN Emergency Medicine; FAMILY PHYSICIAN Internal Medicine
DX: L76.21 Postprocedural hemorrhage of skin and subcutaneous tissue following a dermatologic procedure (principal); I48.91 Unspecified atrial fibrillation; J45.909 Unspecified asthma, uncomplicated; I10 Essential (primary) hypertension; E78.00 Pure hypercholesterolemia, unspecified; E03.9 Hypothyroidism, unspecified; K90.0 Celiac disease; M81.0 Age-related osteoporosis without current pathological fracture; Z79.01 Long term (current) use of anticoagulants; Z80.9 Family history of malignant neoplasm, unspecified; Z82.49 Family history of ischemic heart disease and other diseases of the circulatory system; Z86.19 Personal history of other infectious and parasitic diseases; Z87.891 Personal history of nicotine dependence; Z90.49 Acquired absence of other specified parts of digestive tract; Z90.710 Acquired absence of both cervix and uterus
CPT/HCPCS: 99282

== ENCOUNTER 2025-01-24 15:59 | Emergency (ER) | payer MEDICARE, SELFPAY ==
[2025-01-24 16:22] VITALS: BP 132/74
--- NOTE | 2025-01-24 18:16 | ED.GENMED ---
History of Present Illness
General
Chief Complaint: Skin Problem
Source: patient
Exam Limitations: none
Time Seen by Provider: 01/24/25 17:49
History of Present Illness
History of Present Illness:
See MDM
Past History
Past History
ED Past Medical History: Arrthythmia (Paroxysmal atrial fibrillation/A. flutter), Asthma, HTN, Hypercholesterolemia, Hypothyroidism, Psychiatric, Other (C. difficile colitis, admitted February 2010, celiac disease, osteoporosis) and Other
(Mesenteric artery thrombosis)
ED Past Surgical History: Appendectomy, Gynecological (Hysterectomy) and Orthopedic (Surgery)
Social History
Tobacco: Former smoker
Alcohol: Occasional
Drug: None
Personal:
Living: with family
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
Family History
Family History: CAD and Cancer
Phy Exam
Physical Exam
Physical Exam:
See MDM
Course
Orders/Labs/Results
Orders:
Orders
01/24/25 18:16
Tramadol HCl [Ultram] 25 mg PO NOW STA
Vital Signs
Initial and Last Documented VS:
Initial Vital Signs
Temp Pulse Resp BP Pulse Ox
98.5 F 98 18 132/74 96
01/24/25 16:22 01/24/25 16:22 01/24/25 16:22 01/24/25 16:22 01/24/25 16:22
Last Documented Vital Signs
Temp Pulse Resp BP Pulse Ox
98.5 F 98 18 132/74 96
01/24/25 16:22 01/24/25 16:22 01/24/25 16:22 01/24/25 16:22 01/24/25 18:18
MDM/Problems Addressed
Differential Diagnosis Includes:
Note:
CHIEF COMPLAINT(S)
Post-operative bleeding and pain following Mohs surgery for skin cancer on the scalp.
HISTORY OF PRESENT ILLNESS
The patient is an 89-year-old female with a history of atrial fibrillation and a recent scalp surgery performed due to skin cancer. She reports continued bleeding from the surgical site after the procedure, despite prior attempts to control it with
suture strips and bandaging. The bleeding persisted to the extent that she was advised to visit the emergency department. The patient mentions being on apixaban (Eliquis) and experiencing significant discomfort that interferes with her ability to
sleep. Pain has been extreme following the procedure with descriptions of 'knives and burning,' although currently, she declines additional pain medication due to the discomfort experienced earlier when pharmacies were closed. The patients
post-surgical wound was addressed by a plastic surgeon using a flap technique due to a lack of available skin for closure, and she mentions a history of multiple similar lesions treated previously. The patient also expresses significant frustration
with the ongoing bleed and the impact on her daily routine and rest.
PAST MEDICAL AND SURGICAL HISTORY
- Atrial fibrillation
- History of using apixaban (Eliquis)
- Pacemaker placement
- Thrombectomy for a blood clot
- Multiple prior surgeries for skin cancer
CHRONIC MEDICAL CONDITIONS SIGNIFICANTLY AFFECTING CARE
Chronic conditions affecting care: Atrial fibrillation
PHYSICAL EXAM
General: Alert, no acute distress.
Skin: Warm, dry.
Head: Sutures noted to top of scalp with significant amount of dried blood. No active bleeding
Neck: Appears supple, trachea midline.
Eyes, Ears, Nose, Mouth, and Throat: Moist mucous membranes
Cardiovascular: No signs of cyanosis
Respiratory: Respirations are non-labored.
Abdomen: Non-distended
Musculoskeletal: No deformities
Neurological: No focal neurological deficit observed.
Psychiatric: Cooperative, appropriate mood and affect.
DIFFERENTIAL DIAGNOSIS
The Differential Diagnosis includes, in no particular order and is not limited to:
- Post-operative bleeding due to anticoagulation therapy
- Localized infection at the surgical site
- Incomplete hemostasis during surgery
- Hematoma formation
- Skin reactions from suture material
- Delayed wound healing secondary to medication or systemic factors
- Scalp laceration complications
- Surgical site dehiscence
- Underlying bleeding disorder
- Scalp wound due to trauma
EMERGENCY TREATMENTS ADMINISTERED
Hydrogen peroxide applied to clean off dry blood from the surgical area.
MANAGEMENT OF THE PATIENTS CARE WAS DISCUSSED WITH
Discussion involved coordination with a nurse scheduled to visit the patient at home. Consideration for observation and potential intervention if bleeding resumes.
MEDICATION RECONCILIATION
The patient reports using apixaban (Eliquis). Current pain management involves Tylenol as needed. Allergy to sulfa drugs noted in profile.
MEDICAL DECISION MAKING
- Number and Complexity of Problems Addressed: Chronic conditions affecting care include atrial fibrillation and usage of apixaban. The differential diagnosis includes post-operative bleeding and potential wound healing complications due to
anticoagulation.
- Data:
- Category 1: Tests and documents: Monitoring of the surgical site for bleeding and need for additional intervention if bleeding resumes.
- Category 2: Input from an independent historian was not required.
- Category 3: Discussion of management involved coordination with the visiting nurse scheduled to follow up on the condition.
- Risk:
- Prescription drug management involving apixaban.
- Complex management due to increased risk of bleeding with anticoagulation.
FOLLOW-UP INSTRUCTIONS
The patient is advised to follow up with their surgeon or primary care if symptoms, especially bleeding, persist or worsen. A nurse visit is planned to assess the surgical site and decide on further management.
DIAGNOSIS
- Post-operative bleeding following Mohs surgery, ICD-10 Code: L76.32
- Atrial fibrillation, existing condition, Codified under ICD-10 Code: I48.91
SUMMARY OF ENCOUNTER
The patient, an 89-year-old female with a history of atrial fibrillation and anticoagulation therapy with apixaban, presented to the emergency department due to continued bleeding from a recently treated Mohs surgery site on her scalp. Upon
examination in the emergency department, no active bleeding was noted even after the scab was cleaned thoroughly. Due to the lack of active bleeding, additional sutures were avoided. Pain management was discussed to provide relief, and the patient
expressed comfort with the plan to manage her care at home and to follow up with her doctors for further care.
ASSESSMENT
Post-operative bleeding at the surgical site, status-post Mohs surgery on the scalp. No active bleeding observed during the ED visit.
MANAGEMENT OF THE PATIENTS CARE WAS DISCUSSED WITH
Coordination with the visiting nurse scheduled to follow up on the condition was discussed to manage the care.
PLAN
The plan is to monitor the surgical site and manage pain. A visiting nurse will assess the site and provide necessary intervention if bleeding resumes. The patient is advised to avoid further surgical intervention at this time.
PATIENT EDUCATION AND COUNSELING
The patient was counseled on monitoring the site for bleeding and signs of infection, and advised on pain management strategies.
FOLLOW-UP INSTRUCTIONS
The patient is advised to follow up with her surgeon or primary care if symptoms, especially bleeding, persist or worsen. A nurse visit is planned to assess the surgical site and decide on further management.
MEDICATION RECONCILIATION
The patient reports using apixaban. Current pain management involves Tylenol as needed.
MEDICAL DECISION MAKING
- Number and Complexity of Problems Addressed: Chronic conditions affecting care include atrial fibrillation and usage of apixaban. Differential diagnosis includes post-operative bleeding management and potential wound healing complications due to
anticoagulation.
- Data:
- Category 1: Monitoring of the surgical site for bleeding and need for additional intervention if bleeding resumes.
- Category 3: Discussion of management involved coordination with a visiting nurse who is scheduled to follow up on the condition.
- Risk: Prescription drug management involving apixaban. Complex management due to increased risk of bleeding with anticoagulation.
DIAGNOSIS
- Post-operative bleeding following Mohs surgery, ICD-10 Code: L76.32
- Atrial fibrillation, existing condition, ICD-10 Code: I48.91
*Pulse Oximetry
SaO2: 96
Oxygen Mode of Delivery: Room air
Patient hypoxic: no
*Critical Care Note
Total Time (30-74mins, 75-104mins- exclusive of procedures): Not Applicable
ED Attending Note
-
Portions of this chart may have been created with voice recognition software.� Occasional wrong word or��sound alike� substitutions may have occurred due to the inherent limitations of voice recognition software.
Discharge Plan
Departure
Patient Disposition: Home (Routine Discharge)
Date of Disposition: 01/24/25
Time of Disposition: 19:00
Patient with high blood pressure during this ER visit?: No
Discharge Problem:
Post-op bleeding
Instructions: Bleeding After Surgery
Prescriptions:
New
tramadol 50 mg tablet
25 mg PO BID PRN (Reason: pain) Qty: 10 0RF
No Action
pravastatin 20 MG tablet
20 mg PO QPM
ibandronate 150 mg Tablet
150 mg PO QMONTH
alprazolam [Xanax] 0.5 mg tablet
0.5 mg PO HS PRN (Reason: anxiety/sleep)
Patient Comments:
05/02/2023: last filled 03/29/23, 30 tabs for 30 days from [facility]
Eliquis 5 mg Tablet
2.5 mg PO BID Qty: 60 0RF
magnesium oxide 500 mg magnesium Tablet
500 mg PO DAILY Qty: 0 0RF
metoprolol succinate 25 mg Tablet Extended Release 24 Hr
75 mg PO BID Qty: 120 0RF
multivitamin Tablet
1 tab PO DAILY@1200 Qty: 0 0RF
potassium chloride 20 mEq tablet,ER particles/crystals
20 meq PO DAILY@1200 Qty: 0 0RF
ascorbic acid (vitamin C) [Vitamin C] 500 mg Tablet
500 mg PO DAILY@1200 Qty: 0 0RF
levothyroxine 150 mcg tablet
150 mcg PO DAILY Qty: 0 0RF
cholecalciferol (vitamin D3) [Vitamin D3] 25 mcg (1,000 unit) Tablet
25 mcg PO DAILY@1200 Qty: 0 0RF
mirtazapine 15 mg Tablet
15 mg PO HS
bumetanide 1 mg tablet
0.5 mg PO DAILY
Referrals:
Otf Steen MD [Family Provider, Internal Medicine]
Activity Restrictions/Additional Instructions:
Please return for any worsening symptoms.
You may return at any time if you have further concerns.
Please follow up with your surgeon at the first available appointment, preferably this week.
Thank you for choosing [facility].
Interventions
Interventions:
*Risk Screen - Suicide Last Done: 01/24/25 16:22
*General Assessment Last Done: 01/24/25 16:22
*Neglect/Abuse Screening Last Done: 01/24/25 16:22
*ED- Fall Risk Assessment Last Done: 01/24/25 16:22
*ED COVID-19 Vaccine History Last Done: 01/24/25 16:22
*ED Influenza Vaccine History Last Done: 01/24/25 16:22
Discharge Date and Time
Print Language: FINNISH
[2025-01-24] MEDS: ULTRAM 25 MG PO (19:15)
== END 2025-01-24 19:27 | disposition home or self-care (01) ==
LOC: EMR 15:59
PROVIDERS: EMERGENCY PHYSICIAN Student in an Organized Health Care Education/Training Program; FAMILY PHYSICIAN Internal Medicine
DX: L76.21 Postprocedural hemorrhage of skin and subcutaneous tissue following a dermatologic procedure (principal); I48.0 Paroxysmal atrial fibrillation; I10 Essential (primary) hypertension; E78.00 Pure hypercholesterolemia, unspecified; J45.909 Unspecified asthma, uncomplicated; E03.9 Hypothyroidism, unspecified; K90.0 Celiac disease; K86.81 Exocrine pancreatic insufficiency; M81.0 Age-related osteoporosis without current pathological fracture; Z79.01 Long term (current) use of anticoagulants; Z85.828 Personal history of other malignant neoplasm of skin; Z95.0 Presence of cardiac pacemaker; Z86.19 Personal history of other infectious and parasitic diseases; Z87.891 Personal history of nicotine dependence; Z88.2 Allergy status to sulfonamides; Z80.9 Family history of malignant neoplasm, unspecified; Z82.49 Family history of ischemic heart disease and other diseases of the circulatory system
CPT/HCPCS: 99283